=== PATIENT | male | born 1950 | race Caucasian/White ===

== ENCOUNTER 2018-08-19 21:49 | Emergency (ER) | payer OTHER ==
[~2018-08-19] VITALS: Ht 162.6 cm; Wt 82.0 kg
[~2018-08-19 21:49] MED LIST: GENT5DRO28 BOTH EYES; IBUP-1542 PO
[2018-08-19 21:55] VITALS: Ht 162.6 cm; Wt 82.0 kg
--- NOTE | 2018-08-19 22:19 | ERD ---
ER Documentation Chief Complaint Chief Complaint generalize body weakness x 1 day HPI The patient is a 67-year-old male, presenting to the ER because of generalized weakness/dizziness for the last 3 to 4 days, denies vertigo, syncope, near syncope, seizure, similar symptoms previously. He denies headache, neck pain, chest pain, dyspnea, abdominal pain, vomiting, dysuria, diarrhea. He does not smoke, drinks socially, not been taking his diabetes medication Past medical history: Hypertension, diabetes mellitus, CAD Past surgical history: CABG in 2017 ROS All systems reviewed and are negative except as per history of present illness. Medications Home Meds Discontinued Scripts Gentamicin Sulfate* (Gentamicin Sulfate* Ophth) 0.3% - 5 Ml Drops, 1 DROP BOTH EYES Q4 for 5 Days, EA Prov:LILA RIDDLE. PERSONAL SECURITY SPECIALIST 09/24/14 Ibuprofen* (Motrin*) 600 Mg Tab, 600 MG PO Q6H PRN for PAIN AND OR ELEVATED TEMP, #30 Prov:LILA RIDDLE. PERSONAL SECURITY SPECIALIST 09/24/14 Allergies Allergies: Coded Allergies: No Known Allergy (Unverified , 08/19/18) PMhx/Soc Hx Cardiac Disorders: Yes (HYPERTENSION) Hx Alcohol Use: Yes (SOCIALLY) Hx Substance Use: No Hx Tobacco Use: No Physical Exam Vitals Vital Signs Date Temp Pulse Resp B/P (MAP) Pulse Ox O2 O2 Flow FiO2 Time Delivery Rate 08/19/18 58 21 160/92 100 Nasal 2.0 23:49 (114) Cannula 08/19/18 97.9 62 18 190/100 96 21:55 (130) Physical Exam Const: No acute distress. Head: Atraumatic. Eyes: Normal Conjunctiva. ENT: Normal External Ears, Nose and Mouth. Neck: Full range of motion. No meningismus. Resp: Clear to auscultation bilaterally. Cardio: Regular rate and rhythm. Abd: Soft, non distended, normal bowel sounds, non tender. Skin: No petechiae or rashes. Back: No midline or flank tenderness. Ext: No cyanosis, or edema. Neur: Awake and alert. No focal deficit Psych: Normal Mood and Affect. Result Diagram: 08/19/18 2245 08/19/18 2245 Results 24 hrs Laboratory Tests Test 08/19/18 22:00 08/19/18 22:38 7/12/19 22:45 08/19/18 22:47 Bedside Glucose 437 mg/dL 432 mg/dL Blood Gas Blood venous Specimen Source Arterial Blood 08/19/2018 11:10 Date Drawn :32 PM Arterial Blood VENOUS LINE Gas Puncture Site Arnold Test N/A Venous Blood pH 7.376 Venous Blood 43.2 mmHG pCO2 (Temp Corrected ) Venous Blood 50.6 mmHG pO2 (Temp Corrected ) Venous Blood 24.8 mmol/L HCO3 Venous Blood 84.8 mmHG Oxygen Saturation Venous Blood -0.6 mmol/L Base Excess Venous Blood 15.9 g/dl Total Hemoglobin Venous Blood 84.2 % Oxyhemoglobin Venous Blood 0.2 % Methemoglobin Carboxyhemoglob 0.5 % in Blood Gas 37.0 C Temperature Blood Gas 21 Actual Respiration Rat e Blood Gas NASAL CANNULA Modality FiO2 27.0 % Blood Gas GENE Grady MD Critical Value Read Back Blood Gas KB Notified Whom Blood Gas 08/19/2018 11:15 Notified Time :34 PM White Blood 5.7 10^3/ul Count Red Blood Count 5.01 10^6/ul Hemoglobin 15.5 g/dl Hematocrit 44.5 % Mean 88.8 fl Corpuscular Volume Mean 30.9 pg Corpuscular Hemoglobin Mean 34.8 g/dl Corpuscular Hemoglobin Conc ent Red Cell 12.3 % Distribution Width Platelet Count 160 10^3/UL Mean Platelet 11.8 fl Volume Immature 0.400 % Granulocytes % Neutrophils % 50.2 % Lymphocytes % 31.0 % Monocytes % 12.6 % Eosinophils % 4.9 % Basophils % 0.9 % Nucleated Red 0.0 /100WBC Blood Cells % Immature 0.020 10^3/ul Granulocytes # Neutrophils # 2.9 10^3/ul Lymphocytes # 1.8 10^3/ul Monocytes # 0.7 10^3/ul Eosinophils # 0.3 10^3/ul Basophils # 0.1 10^3/ul Nucleated Red 0.0 10^3/ul Blood Cells # Sodium Level 133 mmol/L Potassium Level 3.7 mmol/L Chloride Level 99 mmol/L Carbon Dioxide 24 mmol/L Level Anion Gap 10 Blood Urea 19 mg/dl Nitrogen Creatinine 0.86 mg/dl Est Glomerular > 60 mL/min Filtrat Rate mL/min Glucose Level 418 mg/dl Calcium Level 8.8 mg/dl Phosphorus 3.8 mg/dl Level Magnesium Level 1.9 mg/dl Troponin I 0.030 ng/ml Test 08/19/18 22:57 08/20/18 00:41 08/20/18 01:06 Urine Color STRAW Urine Clarity CLEAR Urine pH 5.0 Urine Specific 1.027 [place] Urine Ketones NEGATIVE mg/dL Urine Nitrite NEGATIVE mg/dL Urine Bilirubin NEGATIVE mg/dL Urine NEGATIVE mg/dL Urobilinogen Urine Leukocyte NEGATIVE Davian/ul Esterase Urine 0 /HPF Microscopic RBC Urine 0 /HPF Microscopic WBC Urine NEGATIVE mg/dL Hemoglobin Urine Glucose 3+ mg/dL Urine Total 2+ mg/dl Protein Bedside Glucose 367 mg/dL 364 mg/dL Current Medications Medications Dose Sig/Sonja Start Time Status Last (Trade) Ordered Route PRN Stop Time Admin Dose Reason Admin Sodium 820 ml @ ONCE ONCE 08/19/18 DC 08/19/18 Chloride 820 mls/hr IV 23:00 22:49 08/19/18 23:59 Insulin 10 unit ONCE ONCE 08/20/18 DC 08/20/18 Human SC 00:00 00:45 Lispro 08/20/18 00:01 (Humalog) Diagnostic 1 ea 2 HRS AFTER 08/20/18 DC 08/20/18 Test (Pha) HUMALOG ONCE 00:30 00:45 (Accu-Chek) XX 08/20/18 00:31 Procedures/MDM MEDICAL MAKING DECISION: The patient is a 67-year-old male presenting with acute hypercalcemia, treated with normal saline 10 mm/kg, 10 units of Humalog subcu for acute hyperglycemia with good response, is stable for outpatient follow-up The differential diagnoses considered include but are not limited to HHS, DKA, electrolyte imbalance, dehydration, central causes such as cerebellar infarct, cerebellar hemorrhage, cerebellar tumor, acoustic neuroma, peripheral causes suc h as benign positional vertigo, labyrinthitis, medication, Meniere's disease. Departure Diagnosis: Primary Impression: Hyperglycemia due to type 2 diabetes mellitus Condition: Good Comments I discussed the findings with the patient. I advised the patient to follow-up with the primary physician in about 1-2 days, sooner if needed and return if any concern. Disclaimer: Inadvertent spelling and grammatical errors are likely due to EHR/dictation software use and do not reflect on the overall quality of patient care. Also, please note that the electronic time recorded on this note does not necessarily reflect the actual time of the patient encounter. RAHAT MILLS MD Aug 19, 2018 22:19
[2018-08-19] MEDS ORDERED: SOD CHLORIDE 0.9% 820 ML IV ONE (23:00)
[2018-08-20] MEDS ORDERED: INSULIN LISPRO 100 UNIT/ML VIAL SC ONE
[2018-08-20] MEDS ORDERED: ACCU-CHEK XX ONE (00:30)
[2018-08-20 01:54] VITALS: BP 163/98; PULSE 56; RESP 18
== END 2018-08-20 02:00 | disposition home or self-care (01) ==
LOC: E/R 21:49
DX: E11.65 Type 2 diabetes mellitus with hyperglycemia (principal); R42 Dizziness and giddiness; I10 Essential (primary) hypertension; I25.10 Atherosclerotic heart disease of native coronary artery without angina pectoris; Z95.1 Presence of aortocoronary bypass graft
CPT/HCPCS: 36415; 70450; 71045; 80048; 81001; 82803; 82962; 83735; 84100; 84484; 85025; 96372; 99285; J1815; J7030

== ENCOUNTER 2018-08-21 18:38 | Inpatient (IN) | payer OTHER ==
[~2018-08-21] VITALS: Ht 157.5 cm; Wt 79.5 kg
[2018-08-21] MEDS ORDERED: SOD CHLORIDE 0.9% 780 ML IV ONE (19:30)
[2018-08-21] MEDS ORDERED: INSULIN GLARGINE [LANTus] (100 UNITS/ML) SYG SC ONE (20:00)
[2018-08-21] MEDS ORDERED: ONDANSETRON 4 MG INJ IV PRN ×2 (20:00)
[2018-08-21] MEDS ORDERED: LISINOPRIL 20 MG TAB PO ONE (20:00)
[2018-08-21] MEDS ORDERED: NACL 0.9% 3 ML SYG IV SCH (20:00)
[2018-08-21] MEDS ORDERED: GLUCOSE GEL 15 GRAM TUBE PO PRN ×2 (20:00)
[2018-08-21] MEDS ORDERED: DOCUSATE SODIUM 100 MG CAP PO PRN (20:00)
[2018-08-21] MEDS ORDERED: ASPIRIN 325 MG TAB PO ONE (20:00)
[2018-08-21] MEDS ORDERED: DEXTROSE 50% 50 ML SYRINGE IV PRN ×2 (20:00)
[2018-08-21] MEDS ORDERED: ACETAMINOPHEN 325 MG TAB PO PRN ×2 (20:00)
[2018-08-21] MEDS ORDERED: BISACODYL (EC) 5 MG TAB PO PRN (20:00)
[2018-08-21] MEDS ORDERED: GLUCOSE GEL 15 GRAM TUBE BUCCAL PRN (20:00)
[2018-08-21] MEDS ORDERED: GLUCAGON 1 MG INJ IM PRN (20:00)
--- NOTE | 2018-08-21 20:38 | ERD ---
ER Documentation Chief Complaint Chief Complaint C/O HIGH BLOOD SUGAR; 304 IN TRIAGE HPI Patient is a 67-year-old male with coronary disease and diabetes who presents with feeling weak. The patient feels like his balance is off. He has left upper and left lower extremity weakness over the past 1 week. He is not taking medications for his diabetes currently. He called the primary doctor and is trying to make an appointment. The patient was seen on August 19 for hyperglycemia as well. The patient does not know what medicine he was on before for diabetes. He has sensation loss over the upper lower extremity as well. Upon review of old medical records this is the patient's third visit to the ER since 2014. The patient does not know the name of his primary doctor. ROS All systems reviewed and are negative except as per history of present illness. Medications Home Meds Discontinued Scripts Gentamicin Sulfate* (Gentamicin Sulfate* Ophth) 0.3% - 5 Ml Drops, 1 DROP BOTH EYES Q4 for 5 Days, EA Prov:LILA RIDDLE. FUNERAL SERVICE LICENSEE 09/24/14 Ibuprofen* (Motrin*) 600 Mg Tab, 600 MG PO Q6H PRN for PAIN AND OR ELEVATED TEMP, #30 Prov:LILA RIDDLE. FUNERAL SERVICE LICENSEE 09/24/14 Allergies Allergies: Coded Allergies: No Known Allergy (Unverified , 08/19/18) PMhx/Soc History of Surgery: Yes (cabg) Hx Cardiac Disorders: Yes (htn, dm) Hx Alcohol Use: No Hx Substance Use: No Hx Tobacco Use: No Smoking Status: Never smoker FmHx Family History: diabetes Physical Exam Vitals Vital Signs Date Temp Pulse Resp B/P (MAP) Pulse Ox O2 O2 Flow FiO2 Time Delivery Rate 08/21/18 Nasal 2 20:01 Cannula 08/21/18 60 16 167/94 96 Nasal 20:01 (118) Cannula 08/21/18 97.0 60 18 172/99 99 18:45 (123) Physical Exam Const: No acute distress Head: Atraumatic Eyes: Normal Conjunctiva ENT: Normal External Ears, Nose and Mouth. Neck: Full range of motion. No meningismus. Resp: Clear to auscultation bilaterally Cardio: Regular rate and rhythm, no murmurs Abd: Soft, non tender, non distended. Normal bowel sounds Skin: No petechiae or rashes Back: No midline or flank tenderness Ext: No cyanosis, or edema Neur: Awake and alert, cranial nerves II through XII are intact, left upper and left lower extremity weakness with difficulty raising against gravity, sensation decreased in the left upper and lower extremity Psych: Normal Mood and Affect Result Diagram: 08/21/18189908/21/181899 Results 24 hrs Laboratory Tests Test 08/21/18 18:43 08/21/18 19:00 08/21/18 19:05 08/21/18 19:30 Bedside Glucose 304 mg/dL 267 mg/dL White Blood Count 6.0 10^3/ul Red Blood Count 4.95 10^6/ul Hemoglobin 15.4 g/dl Hematocrit 44.7 % Mean Corpuscular 90.3 fl Volume Mean Corpuscular 31.1 pg Hemoglobin Mean Corpuscular 34.5 g/dl Hemoglobin Concen t Red Cell 12.6 % Distribution Width Platelet Count 159 10^3/UL Mean Platelet 11.7 fl Volume Immature 0.200 % Granulocytes % Neutrophils % 52.0 % Lymphocytes % 29.8 % Monocytes % 12.0 % Eosinophils % 5.0 % Basophils % 1.0 % Nucleated Red 0.0 /100WBC Blood Cells % Immature 0.010 10^3/ul Granulocytes # Neutrophils # 3.1 10^3/ul Lymphocytes # 1.8 10^3/ul Monocytes # 0.7 10^3/ul Eosinophils # 0.3 10^3/ul Basophils # 0.1 10^3/ul Nucleated Red 0.0 10^3/ul Blood Cells # Sodium Level 135 mmol/L Potassium Level 4.1 mmol/L Chloride Level 103 mmol/L Carbon Dioxide 24 mmol/L Level Anion Gap 8 Blood Urea 21 mg/dl Nitrogen Creatinine 1.03 mg/dl Est Glomerular > 60 mL/min Filtrat Rate mL/min Glucose Level 286 mg/dl Hemoglobin A1c 12.3 % Calcium Level 8.8 mg/dl Phosphorus Level 4.5 mg/dl Magnesium Level 1.8 mg/dl Urine Color YELLOW Urine Clarity CLEAR Urine pH 6.0 Urine Specific 1.021 [place] Urine Ketones NEGATIVE mg/dL Urine Nitrite NEGATIVE mg/dL Urine Bilirubin NEGATIVE mg/dL Urine NEGATIVE mg/dL Urobilinogen Urine Leukocyte NEGATIVE Davian/ul Esterase Urine Microscopic 0 /HPF RBC Urine Microscopic 1 /HPF WBC Urine Hemoglobin NEGATIVE mg/dL Urine Glucose 3+ mg/dL Urine Total 2+ mg/dl Protein Urine Opiates Negative Screen Urine Negative Barbiturates Urine Negative Amphetamines Screen Urine Negative Benzodiazepines Screen Urine Cocaine Negative Screen Urine Negative Cannabinoids Current Medications Medications Dose Sig/Sonja Start Time Status Last (Trade) Ordered Route PRN Stop Time Admin Dose Reason Admin Sodium 780 ml @ ONCE ONCE 08/21/18 DC 08/21/18 Chloride 780 mls/hr IV 19:30 19:14 08/21/18 20:29 Aspirin 325 mg ONCE ONCE 08/21/18 DC 08/21/18 (Aspirin) PO 20:00 19:58 08/21/18 20:01 Ondansetron 4 mg ER BRIDGE 08/21/18 DC HCl (Zofran PRN IV 20:00 Inj) NAUSEA/VOMITI 08/21/18 20:00 NG 650 mg ER BRIDGE 08/21/18 DC Acetaminophen PRN PO 20:00 (Tylenol .MILD PAIN 08/21/18 20:00 Tab) 1-3 OR TEMP IV Flush 3 ml PER 08/21/18 (NS 3 ml) PROTOCOL IV 20:00 Ondansetron 4 mg Q6H PRN 08/21/18 HCl (Zofran IV 20:00 Inj) NAUSEA/VOMITI NG 650 mg Q6H PRN 08/21/18 Acetaminophen PO .PAIN 1-3 20:00 (Tylenol OR TEMP Tab) Docusate 100 mg Q12H PRN 08/21/18 Sodium PO 20:00 (Colace) .CONSTIPATION Bisacodyl 5 mg DAILY PRN 08/21/18 (Dulcolax) PO 20:00 .CONSTIPATION Discontinue ONCE ONCE 08/21/18 DC Miscellaneous current oral XX 20:00 sulfonylur... 08/21/18 20:01 Information (* Miscellaneous Pharmacy Order) Diagnostic 1 ea 02 XX 08/22/18 Test (Pha) 02:00 (Accu-Chek) ONCE ONCE 08/21/18 DC Miscellaneous HYPOGLYCEMIA XX 20:00 PROTOCOL 08/21/18 20:01 Information w... (* Miscellaneous Pharmacy Order) Insulin NOVOLOG WITH MEALS 08/21/18 Aspart *MILD* BEDTIME SC 21:00 (Novolog ALGORITHM Insulin Pen) Discontinue ONCE ONCE 08/21/18 DC Miscellaneous all previ... XX 20:00 08/21/18 20:01 Information (* Miscellaneous Pharmacy Order) Insulin 10 units ONCE ONCE 08/21/18 DC Glargine SC 20:00 (Lantus) 08/21/18 20:01 Lisinopril 20 mg ONCE ONCE 08/21/18 DC (Zestril) PO 20:00 08/21/18 20:01 1 ea NOTE XX 08/21/18 Miscellaneous 20:00 Information Glucose 15 gm Q15M PRN 08/21/18 (Glutose) PO DECREASED 20:00 GLUCOSE Glucose 22.5 gm Q15M PRN 08/21/18 (Glutose) PO DECREASED 20:00 GLUCOSE Dextrose 25 ml Q15M PRN 08/21/18 (D50w IV DECREASED 20:00 Syringe) GLUCOSE Dextrose 50 ml Q15M PRN 08/21/18 (D50w IV DECREASED 20:00 Syringe) GLUCOSE Glucagon 1 mg Q15M PRN 08/21/18 (Glucagen) IM DECREASED 20:00 GLUCOSE Glucose 15 gm Q15M PRN 08/21/18 (Glutose) BUCCAL 20:00 DECREASED GLUCOSE Procedures/MDM CT brain read by radiology. Chest x-ray read by radiology. EKG read by me: Rate/Rhythm: Regular rate and rhythm Intervals: Normal Impression: No evidence of ischemia or arrhythmia Patient is a 67-year-old male presents with acute stroke. The patient is outside the window for IV TPA or mechanical retrieval as symptoms started 1 week ago. He has left upper and lower semi-weakness with sensation loss. The patient had a CT scan of the brain and then was given aspirin. He had an NIH stroke scale performed by nursing and a bedside swallow. The patient will be admitted to the care of Dr. Thao to a telemetry inpatient bed. He has hyperglycemia but no diabetic ketoacidosis. Critical Care: Time: 35 minutes excluding all billable procedures. Treatments/Evaluations: Close monitoring and treatment of unstable vital signs, cardiorespiratory, and neurologic status, while maintaining tight balance of fluid, respiratory, and cardiac interventions. Departure Diagnosis: Primary Impression: Stroke CVA mechanism: unspecified Qualified Codes: I63.9 - Cerebral infarction, unspecified Additional Impression: Hyperglycemia Condition: GURMEET Grace MD Aug 21, 2018 20:38
--- NOTE | 2018-08-21 20:40 | HP ---
Date/Time of Note Date/Time of Note DATE: 08/21/18 TIME: 20:39 Assessment/Plan VTE Prophylaxis SCD applied (from Nsg): Yes Pharmacological prophylaxis: NA/contraindicated Pharm contraindication: low risk/ambulating Lines/Catheters IV Catheter Type (from Nrsg): Saline Lock Assessment/Plan Hospital Course This is a 67-year-old male being admitted to the telemetry floor for observation for: #1 High suspicion for CVA: Patient does have decreased sensation as well as decreased strength of the left upper and lower extremity. He also has an unsteady gait. There appears to be a left-sided facial droop. CT brain does show signs of old infarct. Will obtain an MRI of the brain and MRA of the head and neck. Will check an echocardiogram with bubble study. Will check carotid Dopplers. Hemoglobin A1c is 12.5 we will need to optimize diabetes medication and regimen. Patient's blood pressure was also elevated in the systolic of 170 we will need to optimize this. We will check lipid panel. Start the patient on a high-dose statin. Will consult neurology . PT/OT/speech eval #2 uncontrolled hypertension: We will initiate lisinopril 20 mg p.o. daily, PRN hydralazine. Titrate to goal of less than 130/80 given hx of DM. #3 uncontrolled diabetes mellitus: Patient's hemoglobin A1c is 12.3. I will initiate Lantus moderate weight-based dose, NovoLog with meals. Insulin sliding scale. Diabetic diet. MICHAELA initiated. #4 hyperlipidemia: Initiate statin, check LFTs, lipid panel #5 coronary artery disease: Patient is status post CABG. Echocardiogram is already been ordered. Initiate any further meds and consider cardiology consultation if indicated. #6 DVT GI prophylaxis: SCDs, no GI prophylaxis indicated Further treatment strategy will be implemented as per the clinical course Result Diagram: 08/21/18189908/21/181899 Results 24hrs Laboratory Tests Test 08/21/18 18:43 08/21/18 19:00 08/21/18 19:05 08/21/18 19:30 Bedside Glucose 304 H 267 H White Blood Count 6.0 Red Blood Count 4.95 Hemoglobin 15.4 Hematocrit 44.7 Mean Corpuscular 90.3 Volume Mean Corpuscular 31.1 Hemoglobin Mean Corpuscular 34.5 Hemoglobin Concent Red Cell 12.6 Distribution Width Platelet Count 159 Mean Platelet Volume 11.7 H Immature 0.200 Granulocytes % Neutrophils % 52.0 Lymphocytes % 29.8 Monocytes % 12.0 H Eosinophils % 5.0 Basophils % 1.0 Nucleated Red Blood 0.0 Cells % Immature 0.010 Granulocytes # Neutrophils # 3.1 Lymphocytes # 1.8 Monocytes # 0.7 Eosinophils # 0.3 Basophils # 0.1 Nucleated Red Blood 0.0 Cells # Sodium Level 135 Potassium Level 4.1 Chloride Level 103 Carbon Dioxide Level 24 Anion Gap 8 Blood Urea Nitrogen 21 H Creatinine 1.03 Est Glomerular > 60 Filtrat Rate mL/min Glucose Level 286 #H Hemoglobin A1c 12.3 H Calcium Level 8.8 Phosphorus Level 4.5 Magnesium Level 1.8 Urine Color YELLOW Urine Clarity CLEAR Urine pH 6.0 Urine Specific 1.021 [place] Urine Ketones NEGATIVE Urine Nitrite NEGATIVE Urine Bilirubin NEGATIVE Urine Urobilinogen NEGATIVE Urine Leukocyte NEGATIVE Esterase Urine Microscopic 0 RBC Urine Microscopic 1 WBC Urine Hemoglobin NEGATIVE Urine Glucose 3+ H Urine Total Protein 2+ H Urine Opiates Screen Negative Urine Barbiturates Negative Urine Amphetamines Negative Screen Urine Negative Benzodiazepines Screen Urine Cocaine Screen Negative Urine Cannabinoids Negative HPI/ROS Admit Date/Time Admit Date/Time Hx of Present Illness Chief complaint: Left-sided weakness and unsteady gait This is a 67-year-old male with a past medical history of coronary artery disease, diabetes and hypertension who presented to the emergency department complaining of weakness. His is present with him at the bedside. She states that approximate 1 week ago patient was reporting left upper and lower extremity numbness and weakness. He was seen in the emergency department and treated for elevated blood sugars on August 19. reports that on that day she noticed that he was having unsteady gait. He has not been taking his blood pressure medications or diabetes medications for approximately 6 months as he apparently did not need to take them any longer. reports that he is still eating. Patient denies any chest pain nausea vomiting or diarrhea. Of note patient is noted to have a hemoglobin A1c of 12.5. Allergies: NKDA Medications: None ROS Const: As per HPI Eyes : No pain discharge or redness or change in visual acuity ENT: No pain, sore throat, congestion, congestion, dysphagia or discharge Respiratory: No shortness of breath, cough, sputum, wheezing, or pleuritic pain Cardiovascular: No chest pain, palpitation, PND, or edema GI : no change in appetite, abdominal pain, nausea, vomiting, diarrhea, constipation, or change in the color his stool Genitourinary: No dysuria, hematuria, flank pain , discharge or CVA tenderness Musculoskeletal: As per HPI Skin: No rash, bruising or hives Neuro: As per HPI Endocrine: No polyuria, polydipsia, temperature intolerance Psych: No hallucination, depression, anxiety or suicidal ideation PMH/Family/Social Past Medical History Diabetes mellitus, hypertension, hyperlipidemia, coronary artery disease Medications Current Medications IV Flush (NS 3 ml) 3 ml PER PROTOCOL IV ; Start 08/21/18 at 20:00 Ondansetron HCl (Zofran Inj) 4 mg Q6H PRN IV NAUSEA/VOMITING; Start 08/21/18 at 20:00 Acetaminophen (Tylenol Tab) 650 mg Q6H PRN PO .PAIN 1-3 OR TEMP; Start 08/21/18 at 20:00 Docusate Sodium (Colace) 100 mg Q12H PRN PO .CONSTIPATION; Start 08/21/18 at 20:00 Bisacodyl (Dulcolax) 5 mg DAILY PRN PO .CONSTIPATION; Start 08/21/18 at 20:00 Diagnostic Test (Pha) (Accu-Chek) 1 ea 02 XX ; Start 08/22/18 at 02:00 Insulin Aspart (Novolog Insulin Pen) NOVOLOG *MILD* ALGORITHM WITH MEALS BEDTIME SC ; Start 08/21/18 at 21:00 Miscellaneous Information 1 ea NOTE XX ; Start 08/21/18 at 20:00 Glucose (Glutose) 15 gm Q15M PRN PO DECREASED GLUCOSE; Start 08/21/18 at 20:00 Glucose (Glutose) 22.5 gm Q15M PRN PO DECREASED GLUCOSE; Start 08/21/18 at 20:00 Dextrose (D50w Syringe) 25 ml Q15M PRN IV DECREASED GLUCOSE; Start 08/21/18 at 20:00 Dextrose (D50w Syringe) 50 ml Q15M PRN IV DECREASED GLUCOSE; Start 08/21/18 at 20:00 Glucagon (Glucagen) 1 mg Q15M PRN IM DECREASED GLUCOSE; Start 08/21/18 at 20:00 Glucose (Glutose) 15 gm Q15M PRN BUCCAL DECREASED GLUCOSE; Start 08/21/18 at 20:00 Coded Allergies: No Known Allergy (Unverified , 08/19/18) Past Surgical History CABG Family History Significant Family History: no pertinent family hx Social History Alcohol Use: sober Smoking Status: Never smoker Drug Use: none (Former heavy drinker) Exam/Review of Systems Vital Signs Vitals Vital Signs Date Temp Pulse Resp B/P (MAP) Pulse Ox O2 O2 Flow FiO2 Time Delivery Rate 08/21/18 Nasal 2 20:01 Cannula 08/21/18 60 16 167/94 96 20:01 (118) 08/21/18 97.0 18:45 Exam Exam General: Patient is currently lying in bed he does not appear to be in any acute distress, he does appear to be facial asymmetry with a possible left-sided facial droop HEENT: Facial asymmetry with possible left-sided facial droop Neck: Supple with full range of motion. No rigidity or meningismus Chest: Nontender Lungs: Clear to auscultation bilaterally no crackles rales or wheezing Heart: Normal S1-S2, Regular rhythm and rate. No murmur, S3, or S4 Abdomen: Soft , nontender, nondistended , bowel sounds are present. No guarding no rebound tenderness , No masses or organomegaly. No costovertebral temporal angle mass Extremities: Normal to inspection, no edema no cyanosis Neurologic: Normal mental status, speech normal, possible left-sided facial droop, decreased network infrastructure architect strength of the left hand, strength 4-5 in the left upper and lower extremity, strength 5 out of 5 in the right upper lower extremity. Gait not assessed this patient states he is tired however does report that it seems like he is walking as if he is drunk. Additional Comments PROCEDURE: CT Brain without contrast. CLINICAL INDICATION: Possible stroke, dizziness TECHNIQUE: A CT of the brain was performed utilizing axial imaging from the skull base through the vertex without intravenous contrast. Multiplanar reformatted images were made.The CTDIvol is 39.52 mGy and the DLP is 713.51 mGycm. One or more the following dose reduction techniques were utilized: Automated exposure control, adjustment of the mA and / or kV according to patient's size, or use of iterative reconstruction technique. DICOM images are available. COMPARISON: CT BRAIN 08/19/2018 FINDINGS: There is no intracranial hemorrhage, mass effect, or midline shift. No extra- axial fluid collection is seen. Mild atrophy is identified with compensatory ventricular and sulcal enlargement. Mild to moderate decreased attenuation is seen in the periventricular and deep white matter, compatible with microvascular ischemic disease. Small chronic infarct in posterior left upper frontal region. The osseous structures and visualized paranasal sinuses are unremarkable. Moderate arterial calcification. IMPRESSION: 1. No evidence of acute intracranial pathology. No significant change compared to previous study. 2. Mild diffuse atrophy. 3. There is mild to moderate microvascular ischemic disease in the periventricu lar and deep white matter. 4. Small chronic infarct in the posterior upper left frontal region. RPTAT: HJES .Kirill Otero MD, MD Date Time Electronically viewed and signed by .Kirill Otero MD, MD on 08/21/2018 19:48 .S/ CC: GURMEET MURILLO MD [id number] PROCEDURE: One view chest radiograph. CLINICAL INDICATION: Possible stroke TECHNIQUE: An AP view of the chest was obtained. COMPARISON: None. FINDINGS: Mediastinum: Median sternotomy wires Heart size: Mildly enlarged Pulmonary vasculature: No visible engorgement. Lungs: Clear. Costophrenic sulci: Clear. Bony structures: Grossly unremarkable for age. IMPRESSION: 1. Mild cardiomegaly and previous median sternotomy without evidence of overt congestive failure or pneumonia. RPTAT:AAJJ Physician Selene Date Time Electronically viewed and signed by Physician Selene on 08/21/2018 19:58 GW/ CC: GURMEET MURILLO MD [id number] RUPA SQUIRES Aug 21, 2018 20:40
[2018-08-21 21:30] VITALS: Ht 157.5 cm; Wt 79.5 kg
[2018-08-21] MEDS: INSULIN ASPART [NOVOLOG] 3 ML PEN SC SCH (22:00)
[2018-08-21 22:04] VITALS: BP 169/94; PULSE 59; RESP 19
[2018-08-22] VITALS (8 sets, daily range): BP systolic 158–188; BP diastolic 87–96; PULSE 54–64; RESP 17–19
[2018-08-22] MEDS ORDERED: hydrALAzine 20 MG INJ IV PRN (02:00)
[2018-08-22] MEDS: ACCU-CHEK XX SCH (02:24)
[2018-08-22] MEDS ORDERED: INSULIN GLARGINE [LANTus] (100 UNITS/ML) SYG SC ONE (06:00)
[2018-08-22] MEDS: LISINOPRIL 20 MG TAB PO SCH (08:21)
[2018-08-22] MEDS: INSULIN ASPART [NOVOLOG] 3 ML PEN SC SCH ×7 (08:30→21:09)
[2018-08-22] MEDS ORDERED: AMLODIPINE 2.5 MG TAB PO SCH (09:00)
--- NOTE | 2018-08-22 11:13 | CONSI ---
Assessment/Plan Assessment/Plan Assessment/Plan (Recall) 67M c/ multiple cerebrovascular risk factors, who presents for evaluation of Left sided weakness x 1 week.. The clinical picture is most ominously concerning for acute stroke.. Head CT is notable for a chronic-appearing L frontal infarct. A1C > 12% LDL 72, CUS is neg, UDS neg P: MRI brain for further characterization Agree w/ lipitor daily for now Add asa daily Add ESR, RPR PT/OT as necessary BP control and other medical management per primary Will follow clinically Consultation Date/Type/Reason Admit Date/Time Type of Consult Neurology Reason for Consultation left sided weakness Requesting Provider: RUPA SQUIRES Date/Time of Note DATE: 08/22/18 TIME: 11:07 Hx of Present Illness This is a 67-year-old male with a past medical history of coronary artery disease, diabetes and hypertension who presented to the emergency department complaining of weakness. His is present with him at the bedside. She states that approximate 1 week ago patient was reporting left upper and lower extremity numbness and weakness. He was seen in the emergency department and treated for elevated blood sugars on August 19. reports that on that day she noticed that he was having unsteady gait. He has not been taking his blood pres sure medications or diabetes medications for approximately 6 months as he apparently did not need to take them any longer. reports that he is still eating. Patient denies any chest pain nausea vomiting or diarrhea. Of note patient is noted to have a hemoglobin A1c of 12.5. per HPI Objective Exam Vitals Vital Signs Date Temp Pulse Resp B/P (MAP) Pulse Ox O2 O2 Flow FiO2 Time Delivery Rate 08/22/18 98.5 64 19 161/90 91 07:29 (113) 08/21/18 Room Air 20:59 08/21/18 2 20:01 Intake and Output 08/21/18 08/21/18 08/22/18 1515:00 23:00 07:00 IntakeIntake Total 50 ml OutputOutput Total 200 ml 600 ml BalanceBalance -200 ml -550 ml Exam PE: Gen Appearance: No Apparent Distress HEENT: Normocephalic Cardiovascular: Regular rate Lungs: Clear bilaterally Abdomen: Soft Extremities: Dry NE: The patient was alert and oriented. Language was normal. Fund of knowledge was normal. Pupils were equal and reactive to light. There was no afferent pupillary defect. Visual howe were normal. Funduscopic examination was limited. Extra-ocular movements were full. Ptosis was absent. There was no nystagmus. Facial sensation was normal. Face was symmetric with normal strength. Hearing was intact. Palate movements were normal. Neck strength was normal. There was normal tongue bulk and speed of movement. Tone was normal. Muscle bulk was normal. I did not see fasciculations. Left arm and leg were mildly weak.. Vibration sensation was normal. Temperature and pinprick sensation was normal. Rapid alternating movements were normal. There was no dysmetria. There was no intention tremor. Gait was deferred due to bedrest. Arm and leg reflexes were symmetric. Fleming's sign was absent. Plantar responses were flexor. Results Result Diagram: 08/22/18 0604 08/22/18 0604 Results 24hrs Laboratory Tests Test 08/21/18 18:43 08/21/18 19:00 08/21/18 19:04 08/21/18 19:05 Bedside Glucose 304 H 267 H White Blood Count 6.0 Red Blood Count 4.95 Hemoglobin 15.4 Hematocrit 44.7 Mean Corpuscular 90.3 Volume Mean Corpuscular 31.1 Hemoglobin Mean Corpuscular 34.5 Hemoglobin Concen t Red Cell 12.6 Distribution Width Platelet Count 159 Mean Platelet 11.7 H Volume Immature 0.200 Granulocytes % Neutrophils % 52.0 Lymphocytes % 29.8 Monocytes % 12.0 H Eosinophils % 5.0 Basophils % 1.0 Nucleated Red 0.0 Blood Cells % Immature 0.010 Granulocytes # Neutrophils # 3.1 Lymphocytes # 1.8 Monocytes # 0.7 Eosinophils # 0.3 Basophils # 0.1 Nucleated Red 0.0 Blood Cells # Sodium Level 135 Potassium Level 4.1 Chloride Level 103 Carbon Dioxide 24 Level Anion Gap 8 Blood Urea 21 H Nitrogen Creatinine 1.03 Est Glomerular > 60 Filtrat Rate mL/min Glucose Level 286 #H Hemoglobin A1c 12.3 H Calcium Level 8.8 Phosphorus Level 4.5 Magnesium Level 1.8 Blood Gas Blood venous Specimen Source Arterial Blood 08/21/2018 8:42:5 Date Drawn 1 PM Arterial Blood VENOUS LINE Gas Puncture Site Arnold Test N/A Venous Blood pH 7.384 Venous Blood pCO2 40.5 (Temp Corrected) Venous Blood pO2 63.4 H (Temp Corrected) Venous Blood HCO3 23.6 Venous Blood 91.7 H Oxygen Saturation Venous Blood Base -1.3 Excess Venous Blood 16.1 Total Hemoglobin Venous Blood 91.1 Oxyhemoglobin Venous Blood 0.2 Methemoglobin Carboxyhemoglobin 0.5 Blood Gas 37.0 Temperature Blood Gas NASAL CANNULA Modality FiO2 30.0 Blood Gas AA Notified Whom Blood Gas 08/21/2018 8:49:4 Notified Time 4 PM Test 08/21/18 19:30 08/21/18 20:34 08/21/18 21:51 08/22/18 02:07 Urine Color YELLOW Urine Clarity CLEAR Urine pH 6.0 Urine Specific 1.021 [place] Urine Ketones NEGATIVE Urine Nitrite NEGATIVE Urine Bilirubin NEGATIVE Urine NEGATIVE Urobilinogen Urine Leukocyte NEGATIVE Esterase Urine Microscopic 0 RBC Urine Microscopic 1 WBC Urine Hemoglobin NEGATIVE Urine Glucose 3+ H Urine Total 2+ H Protein Urine Opiates Negative Screen Urine Negative Barbiturates Urine Negative Amphetamines Screen Urine Negative Benzodiazepines Screen Urine Cocaine Negative Screen Urine Negative Cannabinoids Bedside Glucose 233 H 213 246 H Test 08/22/18 06:04 08/22/18 08:15 White Blood Count 7.1 Red Blood Count 4.86 Hemoglobin 15.0 Hematocrit 44.1 Mean Corpuscular 90.7 Volume Mean Corpuscular 30.9 Hemoglobin Mean Corpuscular 34.0 Hemoglobin Concen t Red Cell 12.7 Distribution Width Platelet Count 162 Mean Platelet 12.1 H Volume Immature 0.300 Granulocytes % Neutrophils % 60.9 Lymphocytes % 23.5 Monocytes % 10.3 Eosinophils % 4.4 Basophils % 0.6 Nucleated Red 0.0 Blood Cells % Immature 0.020 Granulocytes # Neutrophils # 4.3 Lymphocytes # 1.7 Monocytes # 0.7 Eosinophils # 0.3 Basophils # 0.0 Nucleated Red 0.0 Blood Cells # Sodium Level 139 Potassium Level 3.6 Chloride Level 106 Carbon Dioxide 26 Level Anion Gap 7 Blood Urea 23 H Nitrogen Creatinine 0.96 Est Glomerular > 60 Filtrat Rate mL/min Glucose Level 272 H Calcium Level 8.9 Total Bilirubin 0.7 Direct Bilirubin 0.00 Indirect 0.7 Bilirubin Aspartate Amino 25 Transf (AST/SGOT) Alanine 47 Aminotransferase (ALT/SGPT) Alkaline 111 Phosphatase Total Protein 6.3 Albumin 3.1 L Globulin 3.20 Albumin/Globulin 0.96 Ratio Triglycerides 200 H Level Cholesterol Level 136 LDL Cholesterol, 72 Calculated HDL Cholesterol 24 L Cholesterol/HDL 5.6 Ratio Thyroid 5.580 H Stimulating Hormone (TSH) Bedside Glucose 232 H Past Medical History reviewed Home Meds Discontinued Scripts Gentamicin Sulfate* (Gentamicin Sulfate* Ophth) 0.3% - 5 Ml Drops, 1 DROP BOTH EYES Q4 for 5 Days, EA Prov:LILA RIDDLE. [employer] 09/24/14 Ibuprofen* (Motrin*) 600 Mg Tab, 600 MG PO Q6H PRN for PAIN AND OR ELEVATED TEMP, #30 Prov:LILA RIDDLE. [employer] 09/24/14 Medications Current Medications IV Flush (NS 3 ml) 3 ml PER PROTOCOL IV ; Start 08/21/18 at 20:00 Ondansetron HCl (Zofran Inj) 4 mg Q6H PRN IV NAUSEA/VOMITING; Start 08/21/18 at 20:00 Acetaminophen (Tylenol Tab) 650 mg Q6H PRN PO .PAIN 1-3 OR TEMP; Start 08/21/18 at 20:00 Docusate Sodium (Colace) 100 mg Q12H PRN PO .CONSTIPATION; Start 08/21/18 at 20:00 Bisacodyl (Dulcolax) 5 mg DAILY PRN PO .CONSTIPATION; Start 08/21/18 at 20:00 Diagnostic Test (Pha) (Accu-Chek) 1 ea 02 XX Last administered on 08/22/18at 02:24; Admin Dose 1 EA; Start 08/22/18 at 02:00 Insulin Aspart (Novolog Insulin Pen) NOVOLOG *MILD* ALGORITHM WITH MEALS BEDTIME SC Last administered on 08/22/18at 08:30; Admin Dose 4 UNIT; Start 08/21/18 at 21:00 Miscellaneous Information 1 ea NOTE XX ; Start 08/21/18 at 20:00 Glucose (Glutose) 15 gm Q15M PRN PO DECREASED GLUCOSE; Start 08/21/18 at 20:00 Glucose (Glutose) 22.5 gm Q15M PRN PO DECREASED GLUCOSE; Start 08/21/18 at 20:00 Dextrose (D50w Syringe) 25 ml Q15M PRN IV DECREASED GLUCOSE; Start 08/21/18 at 20:00 Dextrose (D50w Syringe) 50 ml Q15M PRN IV DECREASED GLUCOSE; Start 08/21/18 at 20:00 Glucagon (Glucagen) 1 mg Q15M PRN IM DECREASED GLUCOSE; Start 08/21/18 at 20:00 Glucose (Glutose) 15 gm Q15M PRN BUCCAL DECREASED GLUCOSE; Start 08/21/18 at 20:00 Hydralazine HCl (Apresoline) 10 mg Q4H PRN IV ELEVATED BLOOD PRESSURE; Start 08/22/18 at 02:00 Insulin Glargine (Lantus) 20 units DAILY@0800 SC ; Start 08/23/18 at 08:00 Insulin Aspart (Novolog Insulin Pen) 4 unit WITH MEALS SC Last administered on 08/22/18at 08:30; Admin Dose 4 UNIT; Start 08/22/18 at 07:55 Atorvastatin Calcium (Lipitor) 80 mg HS PO ; Start 08/22/18 at 21:00 Lisinopril (Zestril) 20 mg DAILY PO Last administered on 08/22/18at 08:21; Admin Dose 20 MG; Start 08/22/18 at 09:00 Amlodipine Besylate (Norvasc) 2.5 mg DAILY PO Last administered on 08/22/18at 08:21; Admin Dose 2.5 MG; Start 08/22/18 at 09:00 Allergies: Coded Allergies: No Known Allergy (Unverified , 08/19/18) Social History Alcohol Use: sober Smoking Status: Never smoker Drug Use: none (Former heavy drinker) MATTHEW DOZIER Aug 22, 2018 11:12
[2018-08-22] MEDS: ASPIRIN (EC) 81 MG TAB PO SCH (12:01)
--- NOTE | 2018-08-22 15:27 | PN ---
Date/Time of Note Date/Time of Note DATE: 08/22/18 TIME: 15:15 Assessment/Plan VTE Prophylaxis Risk score (from Nsg)>0 risk: 5 SCD applied (from Ns): Yes Pharmacological prophylaxis: LMWH Lines/Catheters IV Catheter Type (from Nrsg): Peripheral IV Assessment/Plan Assessment/Plan 1. Left sided weakness for one week, follow up with MRI, PT/OT 2. 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 DM, increased lantus, ISS 4. HTN, increase norvasc, on lisinopril 5. Dyslipidemia, on lipitor 6. CAD, s/p CABG in 2017, stable 7. TSH 5.58, check FT4 8. DVT prophylaxis: lovenox Result Diagram: 08/22/18 0604 08/22/18 0604 Results 24hrs Laboratory Tests Test 08/21/18 18:43 08/21/18 19:00 08/21/18 19:04 08/21/18 19:05 Bedside Glucose 304 H 267 H White Blood Count 6.0 Red Blood Count 4.95 Hemoglobin 15.4 Hematocrit 44.7 Mean Corpuscular 90.3 Volume Mean Corpuscular 31.1 Hemoglobin Mean Corpuscular 34.5 Hemoglobin Concen t Red Cell 12.6 Distribution Width Platelet Count 159 Mean Platelet 11.7 H Volume Immature 0.200 Granulocytes % Neutrophils % 52.0 Lymphocytes % 29.8 Monocytes % 12.0 H Eosinophils % 5.0 Basophils % 1.0 Nucleated Red 0.0 Blood Cells % Immature 0.010 Granulocytes # Neutrophils # 3.1 Lymphocytes # 1.8 Monocytes # 0.7 Eosinophils # 0.3 Basophils # 0.1 Nucleated Red 0.0 Blood Cells # Sodium Level 135 Potassium Level 4.1 Chloride Level 103 Carbon Dioxide 24 Level Anion Gap 8 Blood Urea 21 H Nitrogen Creatinine 1.03 Est Glomerular > 60 Filtrat Rate mL/min Glucose Level 286 #H Hemoglobin A1c 12.3 H Calcium Level 8.8 Phosphorus Level 4.5 Magnesium Level 1.8 Blood Gas Blood venous Specimen Source Arterial Blood 08/21/2018 8:42:5 Date Drawn 1 PM Arterial Blood VENOUS LINE Gas Puncture Site Arnold Test N/A Venous Blood pH 7.384 Venous Blood pCO2 40.5 (Temp Corrected) Venous Blood pO2 63.4 H (Temp Corrected) Venous Blood HCO3 23.6 Venous Blood 91.7 H Oxygen Saturation Venous Blood Base -1.3 Excess Venous Blood 16.1 Total Hemoglobin Venous Blood 91.1 Oxyhemoglobin Venous Blood 0.2 Methemoglobin Carboxyhemoglobin 0.5 Blood Gas 37.0 Temperature Blood Gas NASAL CANNULA Modality FiO2 30.0 Blood Gas AA Notified Whom Blood Gas 08/21/2018 8:49:4 Notified Time 4 PM Test 08/21/18 19:30 08/21/18 20:34 08/21/18 21:51 08/22/18 02:07 Urine Color YELLOW Urine Clarity CLEAR Urine pH 6.0 Urine Specific 1.021 [place] Urine Ketones NEGATIVE Urine Nitrite NEGATIVE Urine Bilirubin NEGATIVE Urine NEGATIVE Urobilinogen Urine Leukocyte NEGATIVE Esterase Urine Microscopic 0 RBC Urine Microscopic 1 WBC Urine Hemoglobin NEGATIVE Urine Glucose 3+ H Urine Total 2+ H Protein Urine Opiates Negative Screen Urine Negative Barbiturates Urine Negative Amphetamines Screen Urine Negative Benzodiazepines Screen Urine Cocaine Negative Screen Urine Negative Cannabinoids Bedside Glucose 233 H 213 246 H Test 08/22/18 06:04 08/22/18 08:15 08/22/18 11:27 08/22/18 12:03 White Blood Count 7.1 Red Blood Count 4.86 Hemoglobin 15.0 Hematocrit 44.1 Mean Corpuscular 90.7 Volume Mean Corpuscular 30.9 Hemoglobin Mean Corpuscular 34.0 Hemoglobin Concen t Red Cell 12.7 Distribution Width Platelet Count 162 Mean Platelet 12.1 H Volume Immature 0.300 Granulocytes % Neutrophils % 60.9 Lymphocytes % 23.5 Monocytes % 10.3 Eosinophils % 4.4 Basophils % 0.6 Nucleated Red 0.0 Blood Cells % Immature 0.020 Granulocytes # Neutrophils # 4.3 Lymphocytes # 1.7 Monocytes # 0.7 Eosinophils # 0.3 Basophils # 0.0 Nucleated Red 0.0 Blood Cells # Sodium Level 139 Potassium Level 3.6 Chloride Level 106 Carbon Dioxide 26 Level Anion Gap 7 Blood Urea 23 H Nitrogen Creatinine 0.96 Est Glomerular > 60 Filtrat Rate mL/min Glucose Level 272 H Calcium Level 8.9 Total Bilirubin 0.7 Direct Bilirubin 0.00 Indirect 0.7 Bilirubin Aspartate Amino 25 Transf (AST/SGOT) Alanine 47 Aminotransferase (ALT/SGPT) Alkaline 111 Phosphatase Total Protein 6.3 Albumin 3.1 L Globulin 3.20 Albumin/Globulin 0.96 Ratio Triglycerides 200 H Level Cholesterol Level 136 LDL Cholesterol, 72 Calculated HDL Cholesterol 24 L Cholesterol/HDL 5.6 Ratio Thyroid 5.580 H Stimulating Hormone (TSH) Bedside Glucose 232 H 211 Erythrocyte 3 Sedimentation Rate Subjective 24 Hr Interval Summary Free Text/Dictation right side weakness Exam/Review of Systems Exam Vitals Vital Signs Date Temp Pulse Resp B/P (MAP) Pulse Ox O2 O2 Flow FiO2 Time Delivery Rate 08/22/18 98.3 63 17 161/88 93 11:44 (112) 08/21/18 Room Air 20:59 08/21/18 2 20:01 Intake and Output 08/21/18 08/21/18 08/22/18 1515:00 23:00 07:00 IntakeIntake Total 50 ml OutputOutput Total 200 ml 600 ml BalanceBalance -200 ml -550 ml Constitutional: alert, oriented, well developed Psych: no complaints, nl mood/affect Head: normocephalic, atraumatic Eyes: nl conjunctiva, EOMI, nl lids, PERRL ENMT: nl external ears & nose, nl lips & teeth, nl nasal mucosa & septum Neck: supple, non-tender Respiratory: clear to auscultation, normal air movement; No congested cough, No crackles/rales, No diminished breath sounds, No intercostal retraction, No labored breathing, No respirations, No tactile fremitus, No wheezing, No other Cardiovascular: regular rate and rhythm, nl pulses; No bruits, No diastolic murmur, No edema, No gallop, No irregular rhythm, No jugular venous distention (JVD), No murmurs/extra sounds, No rub, No systolic murmur, No S3, No S4, No other Gastrointestinal: soft, nl liver, spleen, non-tender; No ascites, No bowel sounds, No distended, No firm, No hepatomegaly, No mass, No rebound or guarding, No splenomegaly, No surgical scars, No tender, No other Musculoskeletal: nl extremities to inspection Extremities: normal pulses; No calf tenderness, No cyanosis, No clubbing, No edema, No pitting pedal edema, No palpable cord, No tenderness, No other Neurological: [employer] II-XII intact, nl mental status, nl speech, other (4/5 LUE/LLE) Results Results 24hrs Laboratory Tests Test 08/21/18 18:43 08/21/18 19:00 08/21/18 19:04 08/21/18 19:05 Bedside Glucose 304 H 267 H White Blood Count 6.0 Red Blood Count 4.95 Hemoglobin 15.4 Hematocrit 44.7 Mean Corpuscular 90.3 Volume Mean Corpuscular 31.1 Hemoglobin Mean Corpuscular 34.5 Hemoglobin Concen t Red Cell 12.6 Distribution Width Platelet Count 159 Mean Platelet 11.7 H Volume Immature 0.200 Granulocytes % Neutrophils % 52.0 Lymphocytes % 29.8 Monocytes % 12.0 H Eosinophils % 5.0 Basophils % 1.0 Nucleated Red 0.0 Blood Cells % Immature 0.010 Granulocytes # Neutrophils # 3.1 Lymphocytes # 1.8 Monocytes # 0.7 Eosinophils # 0.3 Basophils # 0.1 Nucleated Red 0.0 Blood Cells # Sodium Level 135 Potassium Level 4.1 Chloride Level 103 Carbon Dioxide 24 Level Anion Gap 8 Blood Urea 21 H Nitrogen Creatinine 1.03 Est Glomerular > 60 Filtrat Rate mL/min Glucose Level 286 #H Hemoglobin A1c 12.3 H Calcium Level 8.8 Phosphorus Level 4.5 Magnesium Level 1.8 Blood Gas Blood venous Specimen Source Arterial Blood 08/21/2018 8:42:5 Date Drawn 1 PM Arterial Blood VENOUS LINE Gas Puncture Site Arnold Test N/A Venous Blood pH 7.384 Venous Blood pCO2 40.5 (Temp Corrected) Venous Blood pO2 63.4 H (Temp Corrected) Venous Blood HCO3 23.6 Venous Blood 91.7 H Oxygen Saturation Venous Blood Base -1.3 Excess Venous Blood 16.1 Total Hemoglobin Venous Blood 91.1 Oxyhemoglobin Venous Blood 0.2 Methemoglobin Carboxyhemoglobin 0.5 Blood Gas 37.0 Temperature Blood Gas NASAL CANNULA Modality FiO2 30.0 Blood Gas AA Notified Whom Blood Gas 08/21/2018 8:49:4 Notified Time 4 PM Test 08/21/18 19:30 08/21/18 20:34 08/21/18 21:51 08/22/18 02:07 Urine Color YELLOW Urine Clarity CLEAR Urine pH 6.0 Urine Specific 1.021 [place] Urine Ketones NEGATIVE Urine Nitrite NEGATIVE Urine Bilirubin NEGATIVE Urine NEGATIVE Urobilinogen Urine Leukocyte NEGATIVE Esterase Urine Microscopic 0 RBC Urine Microscopic 1 WBC Urine Hemoglobin NEGATIVE Urine Glucose 3+ H Urine Total 2+ H Protein Urine Opiates Negative Screen Urine Negative Barbiturates Urine Negative Amphetamines Screen Urine Negative Benzodiazepines Screen Urine Cocaine Negative Screen Urine Negative Cannabinoids Bedside Glucose 233 H 213 246 H Test 08/22/18 06:04 08/22/18 08:15 08/22/18 11:27 08/22/18 12:03 White Blood Count 7.1 Red Blood Count 4.86 Hemoglobin 15.0 Hematocrit 44.1 Mean Corpuscular 90.7 Volume Mean Corpuscular 30.9 Hemoglobin Mean Corpuscular 34.0 Hemoglobin Concen t Red Cell 12.7 Distribution Width Platelet Count 162 Mean Platelet 12.1 H Volume Immature 0.300 Granulocytes % Neutrophils % 60.9 Lymphocytes % 23.5 Monocytes % 10.3 Eosinophils % 4.4 Basophils % 0.6 Nucleated Red 0.0 Blood Cells % Immature 0.020 Granulocytes # Neutrophils # 4.3 Lymphocytes # 1.7 Monocytes # 0.7 Eosinophils # 0.3 Basophils # 0.0 Nucleated Red 0.0 Blood Cells # Sodium Level 139 Potassium Level 3.6 Chloride Level 106 Carbon Dioxide 26 Level Anion Gap 7 Blood Urea 23 H Nitrogen Creatinine 0.96 Est Glomerular > 60 Filtrat Rate mL/min Glucose Level 272 H Calcium Level 8.9 Total Bilirubin 0.7 Direct Bilirubin 0.00 Indirect 0.7 Bilirubin Aspartate Amino 25 Transf (AST/SGOT) Alanine 47 Aminotransferase (ALT/SGPT) Alkaline 111 Phosphatase Total Protein 6.3 Albumin 3.1 L Globulin 3.20 Albumin/Globulin 0.96 Ratio Triglycerides 200 H Level Cholesterol Level 136 LDL Cholesterol, 72 Calculated HDL Cholesterol 24 L Cholesterol/HDL 5.6 Ratio Thyroid 5.580 H Stimulating Hormone (TSH) Bedside Glucose 232 H 211 Erythrocyte 3 Sedimentation Rate Medications Medication Current Medications IV Flush (NS 3 ml) 3 ml PER PROTOCOL IV ; Start 08/21/18 at 20:00 Ondansetron HCl (Zofran Inj) 4 mg Q6H PRN IV NAUSEA/VOMITING; Start 08/21/18 at 20:00 Acetaminophen (Tylenol Tab) 650 mg Q6H PRN PO .PAIN 1-3 OR TEMP; Start 08/21/18 at 20:00 Docusate Sodium (Colace) 100 mg Q12H PRN PO .CONSTIPATION; Start 08/21/18 at 20:00 Bisacodyl (Dulcolax) 5 mg DAILY PRN PO .CONSTIPATION; Start 08/21/18 at 20:00 Diagnostic Test (Pha) (Accu-Chek) 1 ea 02 XX Last administered on 08/22/18at 02:24; Admin Dose 1 EA; Start 08/22/18 at 02:00 Insulin Aspart (Novolog Insulin Pen) NOVOLOG *MILD* ALGORITHM WITH MEALS BEDTIME SC Last administered on 08/22/18at 12:08; Admin Dose 2 UNIT; Start 08/21/18 at 21:00 Miscellaneous Information 1 ea NOTE XX ; Start 08/21/18 at 20:00 Glucose (Glutose) 15 gm Q15M PRN PO DECREASED GLUCOSE; Start 08/21/18 at 20:00 Glucose (Glutose) 22.5 gm Q15M PRN PO DECREASED GLUCOSE; Start 08/21/18 at 20:00 Dextrose (D50w Syringe) 25 ml Q15M PRN IV DECREASED GLUCOSE; Start 08/21/18 at 20:00 Dextrose (D50w Syringe) 50 ml Q15M PRN IV DECREASED GLUCOSE; Start 08/21/18 at 20:00 Glucagon (Glucagen) 1 mg Q15M PRN IM DECREASED GLUCOSE; Start 08/21/18 at 20:00 Glucose (Glutose) 15 gm Q15M PRN BUCCAL DECREASED GLUCOSE; Start 08/21/18 at 20:00 Hydralazine HCl (Apresoline) 10 mg Q4H PRN IV ELEVATED BLOOD PRESSURE; Start 08/22/18 at 02:00 Insulin Glargine (Lantus) 20 units DAILY@0800 SC ; Start 08/23/18 at 08:00 Insulin Aspart (Novolog Insulin Pen) 4 unit WITH MEALS SC Last administered on 08/22/18at 12:07; Admin Dose 4 UNIT; Start 08/22/18 at 07:55 Lisinopril (Zestril) 20 mg DAILY PO Last administered on 08/22/18at 08:21; Admin Dose 20 MG; Start 08/22/18 at 09:00 Amlodipine Besylate (Norvasc) 2.5 mg DAILY PO Last administered on 08/22/18at 08:21; Admin Dose 2.5 MG; Start 08/22/18 at 09:00 Atorvastatin Calcium (Lipitor) 40 mg HS PO ; Start 08/22/18 at 21:00 Aspirin (Halfprin) 81 mg DAILY PO Last administered on 08/22/18at 12:01; Admin Dose 81 MG; Start 08/22/18 at 11:30 MICHELLE GIBBONS MD Aug 22, 2018 15:26
[2018-08-22] MEDS: ATORVASTATIN 40 MG TAB PO SCH (20:11)
[2018-08-22] MEDS ORDERED: ATORVASTATIN 80 MG TAB PO SCH (21:00)
[2018-08-23] VITALS (7 sets, daily range): BP systolic 129–171; BP diastolic 75–96; PULSE 59–69; RESP 17–18
[2018-08-23] MEDS: ACCU-CHEK XX SCH (02:51)
[2018-08-23] MEDS ORDERED: AMLODIPINE 5 MG TAB PO SCH (09:00)
[2018-08-23] MEDS: ASPIRIN (EC) 81 MG TAB PO SCH (09:06)
[2018-08-23] MEDS: LISINOPRIL 20 MG TAB PO SCH (09:07)
[2018-08-23] MEDS: ENOXAPARIN 40 MG/0.4 ML SYG SC SCH (09:09)
[2018-08-23] MEDS: INSULIN GLARGINE [LANTus] (100 UNITS/ML) SYG SC SCH (09:09)
[2018-08-23] MEDS: INSULIN ASPART [NOVOLOG] 3 ML PEN SC SCH ×7 (09:09→22:30)
--- NOTE | 2018-08-23 13:56 | CONS ---
Assessment/Plan Assessment/Plan Assessment/Plan (Recall) 67M c/ multiple cerebrovascular risk factors, who presents for evaluation of Left sided weakness x 1 week.. MRI brain confirmed an acute R pontine lacune.. (and chronic infarcts..) MRA head was notable for intracranial stenoses, c/w athero MRA neck was unrevealing A1C > 12% LDL 72, CUS is neg, UDS neg, RPR neg; ESR wnl P: Lipitor daily for secondary stroke prevention Asa/Plavix daily for 3 months, then Plavix daily thereafter...due to intracranial athero PT/OT as necessary BP/Glucose control and other medical management per primary Will follow clinically Consultation Date/Type/Reason Admit Date/Time Aug 21, 2018 at 19:47 Type of Consult Neurology Reason for Consultation left sided weakness Requesting Provider: RUPA SQUIRES Date/Time of Note DATE: 08/23/18 TIME: 13:52 24 HR Interval Summary Free Text/Dictation s/p MRI brain Exam/Review of Systems Exam Vitals Vital Signs Date Temp Pulse Resp B/P (MAP) Pulse Ox O2 O2 Flow FiO2 Time Delivery Rate 08/23/18 98.7 67 18 154/92 8 11:21 (112) 08/21/18 Room Air 20:59 08/21/18 2 20:01 Intake and Output 08/22/18 08/22/18 08/23/18 1515:00 23:00 07:00 IntakeIntake Total 233 ml 500 ml 480 ml BalanceBalance 233 ml 500 ml 480 ml Results Result Diagram: 08/22/18 0604 08/23/18 0636 Results 24hrs Laboratory Tests Test 08/22/18 17:45 08/22/18 20:07 08/23/18 02:44 08/23/18 06:36 Bedside Glucose 189 246 H 137 Sodium Level 142 Potassium Level 3.8 Chloride Level 106 Carbon Dioxide Level 29 Anion Gap 7 Blood Urea Nitrogen 23 H Creatinine 0.93 Est Glomerular > 60 Filtrat Rate mL/min Glucose Level 171 # Calcium Level 9.2 Test 08/23/18 06:38 08/23/18 09:00 08/23/18 11:57 Thyroid Stimulating 5.680 H Hormone (TSH) Free Thyroxine 0.88 Bedside Glucose 250 H 172 Medications Medication Current Medications IV Flush (NS 3 ml) 3 ml PER PROTOCOL IV ; Start 08/21/18 at 20:00 Ondansetron HCl (Zofran Inj) 4 mg Q6H PRN IV NAUSEA/VOMITING; Start 08/21/18 at 20:00 Acetaminophen (Tylenol Tab) 650 mg Q6H PRN PO .PAIN 1-3 OR TEMP; Start 08/21/18 at 20:00 Docusate Sodium (Colace) 100 mg Q12H PRN PO .CONSTIPATION; Start 08/21/18 at 20:00 Bisacodyl (Dulcolax) 5 mg DAILY PRN PO .CONSTIPATION; Start 08/21/18 at 20:00 Diagnostic Test (Pha) (Accu-Chek) 1 ea 02 XX Last administered on 08/23/18at 02:51; Admin Dose 1 EA; Start 08/22/18 at 02:00 Insulin Aspart (Novolog Insulin Pen) NOVOLOG *MILD* ALGORITHM WITH MEALS BEDTIME SC Last administered on 08/23/18at 12:01; Admin Dose 1 UNIT; Start 08/21/18 at 21:00 Miscellaneous Information 1 ea NOTE XX ; Start 08/21/18 at 20:00 Glucose (Glutose) 15 gm Q15M PRN PO DECREASED GLUCOSE; Start 08/21/18 at 20:00 Glucose (Glutose) 22.5 gm Q15M PRN PO DECREASED GLUCOSE; Start 08/21/18 at 20:00 Dextrose (D50w Syringe) 25 ml Q15M PRN IV DECREASED GLUCOSE; Start 08/21/18 at 20:00 Dextrose (D50w Syringe) 50 ml Q15M PRN IV DECREASED GLUCOSE; Start 08/21/18 at 20:00 Glucagon (Glucagen) 1 mg Q15M PRN IM DECREASED GLUCOSE; Start 08/21/18 at 20:00 Glucose (Glutose) 15 gm Q15M PRN BUCCAL DECREASED GLUCOSE; Start 08/21/18 at 20:00 Hydralazine HCl (Apresoline) 10 mg Q4H PRN IV ELEVATED BLOOD PRESSURE; Start 08/22/18 at 02:00 Insulin Glargine (Lantus) 20 units DAILY@0800 SC Last administered on 08/23/18at 09:09; Admin Dose 20 UNITS; Start 08/23/18 at 08:00 Insulin Aspart (Novolog Insulin Pen) 4 unit WITH MEALS SC Last administered on 08/23/18 12:01; Admin Dose 4 UNIT; Start 08/22/18 at 07:55 Lisinopril (Zestril) 20 mg DAILY PO Last administered on 08/23/18 09:07; Admin Dose 20 MG; Start 08/22/18 at 09:00 Atorvastatin Calcium (Lipitor) 40 mg HS PO Last administered on 08/22/18 20:11; Admin Dose 40 MG; Start 08/22/18 at 21:00 Aspirin (Halfprin) 81 mg DAILY PO Last administered on 08/23/18 09:06; Admin Dose 81 MG; Start 08/22/18 at 11:30 Amlodipine Besylate (Norvasc) 5 mg DAILY PO Last administered on 08/23/18 09:07; Admin Dose 5 MG; Start 08/23/18 at 09:00 Enoxaparin Sodium (Lovenox) 40 mg DAILY SC Last administered on 08/23/18 09:09; Admin Dose 40 MG; Start 08/23/18 at 09:00 MATTHEW DOZIER Aug 23, 2018 13:56
[2018-08-23] MEDS ORDERED: CLOPIDOGREL 75 MG TAB PO ONE (14:00)
--- NOTE | 2018-08-23 15:32 | PN ---
Date/Time of Note Date/Time of Note DATE: 08/23/18 TIME: 15:22 Assessment/Plan VTE Prophylaxis Risk score (from Nsg)>0 risk: 5 SCD applied (from Nsg): Yes Pharmacological prophylaxis: LMWH Lines/Catheters IV Catheter Type (from Nrsg): Peripheral IV Assessment/Plan Assessment/Plan 1. 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 DM, on lantus, ISS 4. HTN, increase norvasc, continue lisinopril 5. Dyslipidemia, on lipitor 6. CAD, s/p CABG in 2017, stable 7. TSH 5.58, FT4 0.88, repeat per PCP 8. DVT prophylaxis: lovenox 9. ARU evaluation Result Diagram: 08/22/18 0604 08/23/18 0636 Results 24hrs Laboratory Tests Test 08/22/18 17:45 08/22/18 20:07 08/23/18 02:44 08/23/18 06:36 Bedside Glucose 189 246 H 137 Sodium Level 142 Potassium Level 3.8 Chloride Level 106 Carbon Dioxide Level 29 Anion Gap 7 Blood Urea Nitrogen 23 H Creatinine 0.93 Est Glomerular > 60 Filtrat Rate mL/min Glucose Level 171 # Calcium Level 9.2 Test 08/23/18 06:38 08/23/18 09:00 08/23/18 11:57 Thyroid Stimulating 5.680 H Hormone (TSH) Free Thyroxine 0.88 Bedside Glucose 250 H 172 Subjective 24 Hr Interval Summary Free Text/Dictation left sided weakness Exam/Review of Systems Exam Vitals Vital Signs Date Temp Pulse Resp B/P (MAP) Pulse Ox O2 O2 Flow FiO2 Time Delivery Rate 08/23/18 97.7 64 17 168/88 97 15:19 (114) 08/21/18 Room Air 20:59 08/21/18 2 20:01 Intake and Output 08/22/18 08/22/18 08/23/18 1515:00 23:00 07:00 IntakeIntake Total 233 ml 500 ml 480 ml BalanceBalance 233 ml 500 ml 480 ml Constitutional: alert, oriented, well developed Psych: no complaints, nl mood/affect Head: normocephalic, atraumatic Eyes: nl conjunctiva, EOMI, nl lids ENMT: nl external ears & nose, nl lips & teeth, nl nasal mucosa & septum Neck: supple, non-tender Respiratory: clear to auscultation, normal air movement; No congested cough, No crackles/rales, No diminished breath sounds, No intercostal retraction, No labored breathing, No respirations, No tactile fremi tus, No wheezing, No other Cardiovascular: regular rate and rhythm, nl pulses; No bruits, No diastolic murmur, No edema, No gallop, No irregular rhythm, No jugular venous distention (JVD), No murmurs/extra sounds, No rub, No systolic murmur, No S3, No S4, No other Gastrointestinal: soft, nl liver, spleen, non-tender; No ascites, No bowel sounds, No distended, No firm, No hepatomegaly, No mass, No rebound or guarding, No splenomegaly, No surgical scars, No tender, No other Musculoskeletal: nl extremities to inspection Extremities: normal pulses; No calf tenderness, No cyanosis, No clubbing, No edema, No pitting pedal edema, No palpable cord, No tenderness, No other 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, nl mental status, nl speech, other (LUE/LLE 4/5) Skin: nl turgor Results Results 24hrs Laboratory Tests Test 08/22/18 17:45 08/22/18 20:07 08/23/18 02:44 08/23/18 06:36 Bedside Glucose 189 246 H 137 Sodium Level 142 Potassium Level 3.8 Chloride Level 106 Carbon Dioxide Level 29 Anion Gap 7 Blood Urea Nitrogen 23 H Creatinine 0.93 Est Glomerular > 60 Filtrat Rate mL/min Glucose Level 171 # Calcium Level 9.2 Test 08/23/18 06:38 08/23/18 09:00 08/23/18 11:57 Thyroid Stimulating 5.680 H Hormone (TSH) Free Thyroxine 0.88 Bedside Glucose 250 H 172 Medications Medication Current Medications IV Flush (NS 3 ml) 3 ml PER PROTOCOL IV ; Start 08/21/18 at 20:00 Ondansetron HCl (Zofran Inj) 4 mg Q6H PRN IV NAUSEA/VOMITING; Start 08/21/18 at 20:00 Acetaminophen (Tylenol Tab) 650 mg Q6H PRN PO .PAIN 1-3 OR TEMP; Start 08/21/18 at 20:00 Docusate Sodium (Colace) 100 mg Q12H PRN PO .CONSTIPATION; Start 08/21/18 at 20:00 Bisacodyl (Dulcolax) 5 mg DAILY PRN PO .CONSTIPATION; Start 08/21/18 at 20:00 Diagnostic Test (Pha) (Accu-Chek) 1 ea 02 XX Last administered on 08/23/18at 02:51; Admin Dose 1 EA; Start 08/22/18 at 02:00 Insulin Aspart (Novolog Insulin Pen) NOVOLOG *MILD* ALGORITHM WITH MEALS BEDTIME SC Last administered on 08/23/18at 12:01; Admin Dose 1 UNIT; Start 08/21/18 at 21:00 Miscellaneous Information 1 ea NOTE XX ; Start 08/21/18 at 20:00 Glucose (Glutose) 15 gm Q15M PRN PO DECREASED GLUCOSE; Start 08/21/18 at 20:00 Glucose (Glutose) 22.5 gm Q15M PRN PO DECREASED GLUCOSE; Start 08/21/18 at 20:00 Dextrose (D50w Syringe) 25 ml Q15M PRN IV DECREASED GLUCOSE; Start 08/21/18 at 20:00 Dextrose (D50w Syringe) 50 ml Q15M PRN IV DECREASED GLUCOSE; Start 08/21/18 at 20:00 Glucagon (Glucagen) 1 mg Q15M PRN IM DECREASED GLUCOSE; Start 08/21/18 at 20:00 Glucose (Glutose) 15 gm Q15M PRN BUCCAL DECREASED GLUCOSE; Start 08/21/18 at 20:00 Hydralazine HCl (Apresoline) 10 mg Q4H PRN IV ELEVATED BLOOD PRESSURE; Start 08/22/18 at 02:00 Insulin Glargine (Lantus) 20 units DAILY@0800 SC Last administered on 08/23/18at 09:09; Admin Dose 20 UNITS; Start 08/23/18 at 08:00 Insulin Aspart (Novolog Insulin Pen) 4 unit WITH MEALS SC Last administered on 08/23/18at 12:01; Admin Dose 4 UNIT; Start 08/22/18 at 07:55 Lisinopril (Zestril) 20 mg DAILY PO Last administered on 08/23/18at 09:07; Admin Dose 20 MG; Start 08/22/18 at 09:00 Atorvastatin Calcium (Lipitor) 40 mg HS PO Last administered on 08/22/18at 20:11; Admin Dose 40 MG; Start 08/22/18 at 21:00 Aspirin (Halfprin) 81 mg DAILY PO Last administered on 08/23/18at 09:06; Admin Dose 81 MG; Start 08/22/18 at 11:30 Amlodipine Besylate (Norvasc) 5 mg DAILY PO Last administered on 08/23/18at 09:07; Admin Dose 5 MG; Start 08/23/18 at 09:00 Enoxaparin Sodium (Lovenox) 40 mg DAILY SC Last administered on 08/23/18at 09:09; Admin Dose 40 MG; Start 08/23/18 at 09:00 Clopidogrel Bisulfate (plaVIX) 75 mg DAILY PO ; Start 08/24/18 at 09:00 MICHELLE GIBBONS MD Aug 23, 2018 15:32
[2018-08-23] MEDS ORDERED: AMLODIPINE 5 MG TAB PO ONE (16:00)
--- NOTE | 2018-08-23 17:48 | RADRPT ---
Echocardiogram Report Patient Name: WENDY GASTELUMCANDELARIAIOPatient ID: [id number] : 1950 (67y 11m)Study Date: 08/22/2018 9:10:06 AM Gender: Cielocession #: [id number] Tech: Davis Chavarria [facility] Location: 603-A Ref.Physician: RUPA SQUIRES Height(Cm): BSA: Weight(Kg): Quality: AdequateOrder Physician: RUPA SQUIRES Account #: Procedures: Echocardiographic Report: Transthoracic echocardiogram with complete 2D, M-Mode, and doppler examination. Indications: Chest Pain w/ bubble study. Measurements: 2D/M Mode Doppler Measurement Value Normal Range Measurement Value Normal Range LVIDd 2D 5.1 [ 4.2 - 5.8 ] cm AV Peak Albaro 1.4 [ 100.0 - 170.0 ] cm/sec LVIDs 2D 3.7 [ 2.5 - 4.0 ] cm AV Peak PG 8.0 [ 2.0 - 9.0 ] mmHg LVPWd 2D 1.5 [ 0.6 - 1.0 ] cm LVOT Peak Albaro 0.9 [ 70.0 - 110.0 ] cm/sec IVSd 2D 1.5 [ 0.6 - 1.0 ] cm LVOT Peak PG 3.0 [ 2.0 - 6.0 ] mmHg AoR Diam 2D 3.2 [ 2.6 - 3.4 ] cm MV E Peak Albaro 1.1 [ 60.0 - 130.0 ] cm/sec EDV 2D 122.0 [ 62.0 - 150.0 ] ml MV A Peak Albaro 0.4 [ 100.0 - 120.0 ] cm/sec ESV 2D 57.4 [ 21.0 - 61.0 ] ml MV E/A 3.0 [ 0.8 - 1.5 ] ratio EF 2D 53.0 [ 52.0 - 72.0 ] percent MV Decel Time 197 [ 104 - 258 ] msec LA Dimen 2D 4.3 [ 3.0 - 4.0 ] cm Lat E` Albaro 0.1 [ 10.0 - 15.0 ] cm/sec Lateral E/E` 19.2 [ 1.0 - 2.0 ] ratio Med E` Albaro 0.1 cm/sec MV E/A 3.0 [ 0.8 - 1.5 ] ratio TR Peak Albaro 2.9 [ 100.0 - 280.0 ] cm/sec TR Peak PG 33.0 mmHg RVSP 36.0 [ 10.0 - 36.0 ] mmHg Findings: Left Ventricle: Normal left ventricular cavity size. Moderate concentric left ventricular hypertrophy. Mild left ventricular systolic dysfunction. Ejection fraction is visually estimated at 45 %. Tissue Doppler/Mitral Doppler indices are consistent with pseudonormalization with mildly elevated left atrial pressure (Stage II diastolic dysfunction). Right Ventricle: Normal right ventricular size. Normal right ventricular systolic function. Left Atrium: There is mild enlargement of left atrium. Right Atrium: The right atrium is normal in size. Atrial Septum: Bubble study was performed with and with out valsalva indicating no evidence of intra atrial shunt. Mitral Valve: Mild mitral leaflet calcification. Mild mitral annular calcification. Mild mitral valve regurgitation. Aortic Valve: No significant aortic stenosis or insufficiency. Aortic cusps appear mildly calcified. Tricuspid Valve: Normal appearance of the tricuspid valve. The estimated Peak RVSP is 36 mmHg. There is mild tricuspid regurgitation. Pericardium: Normal pericardium with no significant pericardial effusion. Aorta: Normal aortic root. IVC: Normal size and normal respiratory collapse consistent with normal right atrial pressure. Conclusions: Normal left ventricular cavity size. Moderate concentric left ventricular hypertrophy. Mild left ventricular systolic dysfunction. Ejection fraction is visually estimated at 45 %. Tissue Doppler/Mitral Doppler indices are consistent with pseudonormalization with mildly elevated left atrial pressure (Stage II diastolic dysfunction). Normal right ventricular size. Normal right ventricular systolic function. There is mild enlargement of left atrium. The right atrium is normal in size. Mild mitral valve regurgitation. No significant aortic stenosis or insufficiency. The estimated Peak RVSP is 36 mmHg. There is mild tricuspid regurgitation. Normal pericardium with no significant pericardial effusion. Bubble study was performed with and with out valsalva indicating no evidence of intra atrial shunt. Electronically Signed By: Eddi Flower 2018-08-23 17:47:20 PDT
[2018-08-23] MEDS: ATORVASTATIN 40 MG TAB PO SCH (21:02)
[2018-08-24] MEDS: ACCU-CHEK XX SCH (01:33)
[2018-08-24 03:39] VITALS: BP 132/80; PULSE 61; RESP 17
[2018-08-24 07:36] VITALS: BP 132/84; PULSE 59; RESP 16
[2018-08-24] MEDS: ENOXAPARIN 40 MG/0.4 ML SYG SC SCH (08:09)
[2018-08-24] MEDS: INSULIN GLARGINE [LANTus] (100 UNITS/ML) SYG SC SCH (08:10)
[2018-08-24] MEDS: INSULIN ASPART [NOVOLOG] 3 ML PEN SC SCH ×7 (08:10→21:26)
[2018-08-24] MEDS: CLOPIDOGREL 75 MG TAB PO SCH (08:24)
[2018-08-24] MEDS: ASPIRIN (EC) 81 MG TAB PO SCH (08:24)
[2018-08-24] MEDS: LISINOPRIL 20 MG TAB PO SCH (08:25)
[2018-08-24] MEDS: AMLODIPINE 10 MG TAB PO SCH (08:29)
--- NOTE | 2018-08-24 12:26 | CONS ---
Assessment/Plan Assessment/Plan Assessment/Plan (Recall) 67M c/ multiple cerebrovascular risk factors, who presents for evaluation of Left sided weakness x 1 week.. MRI brain confirmed an acute R pontine lacune.. (and chronic infarcts..) MRA head was notable for intracranial stenoses, c/w athero MRA neck was unrevealing A1C > 12% LDL 72, CUS is neg, UDS neg, RPR neg; ESR wnl P: Lipitor daily for secondary stroke prevention Asa/Plavix daily for 3 months, then Plavix daily thereafter...due to intracranial athero PT/OT as necessary BP/Glucose control and other medical management per primary Will follow clinically Consultation Date/Type/Reason Admit Date/Time Aug 21, 2018 at 19:47 Type of Consult Neurology Reason for Consultation left sided weakness Requesting Provider: RUPA SQUIRES Date/Time of Note DATE: 08/24/18 TIME: 12:25 24 HR Interval Summary Free Text/Dictation Continues acute care Exam/Review of Systems Exam Vitals Vital Signs Date Temp Pulse Resp B/P (MAP) Pulse Ox O2 O2 Flow FiO2 Time Delivery Rate 08/24/18 98.7 59 16 132/84 96 07:36 (100) 08/21/18 Room Air 20:59 08/21/18 2 20:01 Intake and Output 08/23/18 08/23/18 08/24/18 1515:00 23:00 07:00 IntakeIntake Total 750 ml 500 ml BalanceBalance 750 ml 500 ml Exam PE: Gen Appearance: No Apparent Distress HEENT: Normocephalic Cardiovascular: Regular rate Lungs: Clear bilaterally Abdomen: Soft Extremities: Dry NE: The patient was alert and oriented. Language was normal. Fund of knowledge was normal. Pupils were equal and reactive to light. There was no afferent pupillary defect. Visual howe were normal. Funduscopic examination was limited. Extra-ocular movements were full. Ptosis was absent. There was no nystagmus. Facial sensation was normal. Face was symmetric with normal strength. Hearing was intact. Palate movements were normal. Neck strength was normal. There was normal tongue bulk and speed of movement. Tone was normal. Muscle bulk was normal. I did not see fasciculations. Mild left hemiparesis. Vibration sensation was normal. Temperature and pinprick sensation was normal. Rapid alternating movements were normal. There was no dysmetria. There was no in tention tremor. Gait was deferred due to bedrest. Arm and leg reflexes were symmetric. Flemign's sign was absent. Plantar responses were flexor. Results Result Diagram: 08/22/18 0604 08/23/18 0636 Results 24hrs Laboratory Tests Test 08/23/18 17:50 08/23/18 21:58 08/24/18 01:23 08/24/18 07:58 Bedside Glucose 197 277 H 188 211 Test 08/24/18 11:59 Bedside Glucose 184 Medications Medication Current Medications IV Flush (NS 3 ml) 3 ml PER PROTOCOL IV ; Start 08/21/18 at 20:00 Ondansetron HCl (Zofran Inj) 4 mg Q6H PRN IV NAUSEA/VOMITING; Start 08/21/18 at 20:00 Acetaminophen (Tylenol Tab) 650 mg Q6H PRN PO .PAIN 1-3 OR TEMP; Start 08/21/18 at 20:00 Docusate Sodium (Colace) 100 mg Q12H PRN PO .CONSTIPATION; Start 08/21/18 at 20:00 Bisacodyl (Dulcolax) 5 mg DAILY PRN PO .CONSTIPATION; Start 08/21/18 at 20:00 Diagnostic Test (Pha) (Accu-Chek) 1 ea 02 XX Last administered on 08/24/18at 01:33; Admin Dose 1 EA; Start 08/22/18 at 02:00 Insulin Aspart (Novolog Insulin Pen) NOVOLOG *MILD* ALGORITHM WITH MEALS BEDTIME SC Last administered on 08/24/18at 12:03; Admin Dose 2 UNIT; Start 08/21/18 at 21:00 Miscellaneous Information 1 ea NOTE XX ; Start 08/21/18 at 20:00 Glucose (Glutose) 15 gm Q15M PRN PO DECREASED GLUCOSE; Start 08/21/18 at 20:00 Glucose (Glutose) 22.5 gm Q15M PRN PO DECREASED GLUCOSE; Start 08/21/18 at 20:00 Dextrose (D50w Syringe) 25 ml Q15M PRN IV DECREASED GLUCOSE; Start 08/21/18 at 20:00 Dextrose (D50w Syringe) 50 ml Q15M PRN IV DECREASED GLUCOSE; Start 08/21/18 at 20:00 Glucagon (Glucagen) 1 mg Q15M PRN IM DECREASED GLUCOSE; Start 08/21/18 at 20:00 Glucose (Glutose) 15 gm Q15M PRN BUCCAL DECREASED GLUCOSE; Start 08/21/18 at 20:00 Hydralazine HCl (Apresoline) 10 mg Q4H PRN IV ELEVATED BLOOD PRESSURE; Start 08/22/18 at 02:00 Insulin Glargine (Lantus) 20 units DAILY@0800 SC Last administered on 08/24/18at 08:10; Admin Dose 20 UNITS; Start 08/23/18 at 08:00 Insulin Aspart (Novolog Insulin Pen) 4 unit WITH MEALS SC Last administered on 08/24/18 12:04; Admin Dose 4 UNIT; Start 08/22/18 at 07:55 Lisinopril (Zestril) 20 mg DAILY PO Last administered on 08/24/18 08:25; Admin Dose 20 MG; Start 08/22/18 at 09:00 Atorvastatin Calcium (Lipitor) 40 mg HS PO Last administered on 08/23/18 21:02; Admin Dose 40 MG; Start 08/22/18 at 21:00 Aspirin (Halfprin) 81 mg DAILY PO Last administered on 08/24/18 08:24; Admin D ose 81 MG; Start 08/22/18 at 11:30 Enoxaparin Sodium (Lovenox) 40 mg DAILY SC Last administered on 08/24/18 08:09; Admin Dose 40 MG; Start 08/23/18 at 09:00 Clopidogrel Bisulfate (plaVIX) 75 mg DAILY PO Last administered on 08/24/18 08:24; Admin Dose 75 MG; Start 08/24/18 at 09:00 Amlodipine Besylate (Norvasc) 10 mg DAILY PO Last administered on 08/24/18 08:29; Admin Dose 10 MG; Start 08/24/18 at 09:00 MATTHEW DOZIER Aug 24, 2018 12:26
[2018-08-24 12:28] VITALS: BP 155/85; PULSE 65; RESP 18
--- NOTE | 2018-08-24 13:37 | PN ---
Date/Time of Note Date/Time of Note DATE: 08/24/18 TIME: 13:35 Assessment/Plan VTE Prophylaxis Risk score (from Ns)>0 risk: 2 SCD applied (from Ns): Yes Pharmacological prophylaxis: LMWH Lines/Catheters IV Catheter Type (from Nrsg): [place] Assessment/Plan Assessment/Plan 1. 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 DM, on lantus, ISS, increase lantus 4. HTN, increase norvasc, continue lisinopril 5. Dyslipidemia, on lipitor 6. CAD, s/p CABG in 2017, stable 7. TSH 5.58, FT4 0.88, repeat per PCP 8. DVT prophylaxis: lovenox 9. Awaiting for ARU evaluation Result Diagram: 08/22/18 0604 08/23/18 0636 Results 24hrs Laboratory Tests Test 08/23/18 17:50 08/23/18 21:58 08/24/18 01:23 08/24/18 07:58 Bedside Glucose 197 277 H 188 211 Test 08/24/18 11:59 Bedside Glucose 184 Subjective 24 Hr Interval Summary Free Text/Dictation no event, left isede weakness Exam/Review of Systems Exam Vitals Vital Signs Date Temp Pulse Resp B/P (MAP) Pulse Ox O2 O2 Flow FiO2 Time Delivery Rate 08/24/18 98.6 65 18 155/85 97 12:28 (108) 08/21/18 Room Air 20:59 08/21/18 2 20:01 Intake and Output 08/23/18 08/23/18 08/24/18 1515:00 23:00 07:00 IntakeIntake Total 750 ml 500 ml BalanceBalance 750 ml 500 ml Constitutional: alert, oriented, well developed Psych: no complaints, nl mood/affect Head: normocephalic, atraumatic Eyes: nl conjunctiva, EOMI, nl lids ENMT: nl external ears & nose, nl lips & teeth, nl nasal mucosa & septum Neck: supple, non-tender Respiratory: clear to auscultation, normal air movement; No congested cough, No crackles/rales, No diminished breath sounds, No intercostal retraction, No labored breathing, No respirations, No tactile fremitus, No wheezing, No other Cardiovascular: regular rate and rhythm, nl pulses; No bruits, No diastolic murmur, No edema, No gallop, No irregular rhythm, No jugular venous distention (JVD), No murmurs/extra sounds, No rub, No systolic murmur, No S3, No S4, No other Gastrointestinal: soft, nl liver, spleen, non-tender Musculoskeletal: nl extremities to inspection Extremities: normal pulses; No calf tenderness, No cyanosis, No clubbing, No edema, No pitting pedal edema, No palpable cord, No tenderness, No other 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, nl mental status, nl speech, other (LUE/LLE 4/5) Results Results 24hrs Laboratory Tests Test 08/23/18 17:50 08/23/18 21:58 08/24/18 01:23 08/24/18 07:58 Bedside Glucose 197 277 H 188 211 Test 08/24/18 11:59 Bedside Glucose 184 Medications Medication Current Medications IV Flush (NS 3 ml) 3 ml PER PROTOCOL IV ; Start 08/21/18 at 20:00 Ondansetron HCl (Zofran Inj) 4 mg Q6H PRN IV NAUSEA/VOMITING; Start 08/21/18 at 20:00 Acetaminophen (Tylenol Tab) 650 mg Q6H PRN PO .PAIN 1-3 OR TEMP; Start 08/21/18 at 20:00 Docusate Sodium (Colace) 100 mg Q12H PRN PO .CONSTIPATION; Start 08/21/18 at 20:00 Bisacodyl (Dulcolax) 5 mg DAILY PRN PO .CONSTIPATION; Start 08/21/18 at 20:00 Diagnostic Test (Pha) (Accu-Chek) 1 ea 02 XX Last administered on 08/24/18at 01:33; Admin Dose 1 EA; Start 08/22/18 at 02:00 Insulin Aspart (Novolog Insulin Pen) NOVOLOG *MILD* ALGORITHM WITH MEALS BEDTIME SC Last administered on 08/24/18at 12:03; Admin Dose 2 UNIT; Start 08/21/18 at 21:00 Miscellaneous Information 1 ea NOTE XX ; Start 08/21/18 at 20:00 Glucose (Glutose) 15 gm Q15M PRN PO DECREASED GLUCOSE; Start 08/21/18 at 20:00 Glucose (Glutose) 22.5 gm Q15M PRN PO DECREASED GLUCOSE; Start 08/21/18 at 20:00 Dextrose (D50w Syringe) 25 ml Q15M PRN IV DECREASED GLUCOSE; Start 08/21/18 at 20:00 Dextrose (D50w Syringe) 50 ml Q15M PRN IV DECREASED GLUCOSE; Start 08/21/18 at 20:00 Glucagon (Glucagen) 1 mg Q15M PRN IM DECREASED GLUCOSE; Start 08/21/18 at 20:00 Glucose (Glutose) 15 gm Q15M PRN BUCCAL DECREASED GLUCOSE; Start 08/21/18 at 20:00 Hydralazine HCl (Apresoline) 10 mg Q4H PRN IV ELEVATED BLOOD PRESSURE; Start 08/22/18 at 02:00 Insulin Glargine (Lantus) 20 units DAILY@0800 SC Last administered on 08/24/18at 08:10; Admin Dose 20 UNITS; Start 08/23/18 at 08:00 Insulin Aspart (Novolog Insulin Pen) 4 unit WITH MEALS SC Last administered on 08/24/18at 12:04; Admin Dose 4 UNIT; Start 08/22/18 at 07:55 Lisinopril (Zestril) 20 mg DAILY PO Last administered on 08/24/18at 08:25; Admin Dose 20 MG; Start 08/22/18 at 09:00 Atorvastatin Calcium (Lipitor) 40 mg HS PO Last administered on 08/23/18at 21:02; Admin Dose 40 MG; Start 08/22/18 at 21:00 Aspirin (Halfprin) 81 mg DAILY PO Last administered on 08/24/18at 08:24; Admin Dose 81 MG; Start 08/22/18 at 11:30 Enoxaparin Sodium (Lovenox) 40 mg DAILY SC Last administered on 08/24/18at 08:09; Admin Dose 40 MG; Start 08/23/18 at 09:00 Clopidogrel Bisulfate (plaVIX) 75 mg DAILY PO Last administered on 08/24/18at 08:24; Admin Dose 75 MG; Start 08/24/18 at 09:00 Amlodipine Besylate (Norvasc) 10 mg DAILY PO Last administered on 08/24/18at 08:29; Admin Dose 10 MG; Start 08/24/18 at 09:00 MICHELLE GIBBONS MD Aug 24, 2018 13:37
[2018-08-24 15:33] VITALS: BP 146/80; PULSE 61; RESP 18
[2018-08-24 20:00] VITALS: BP 154/82; PULSE 69; RESP 18
[2018-08-24] MEDS: ATORVASTATIN 40 MG TAB PO SCH (21:23)
[2018-08-25 00:15] VITALS: BP 138/73; PULSE 63; RESP 17
[2018-08-25] MEDS: ACCU-CHEK XX SCH (02:33)
[2018-08-25 04:00] VITALS: BP 136/85; PULSE 67; RESP 16
[2018-08-25 07:55] VITALS: BP 145/83; PULSE 61; RESP 17
[2018-08-25] MEDS: INSULIN ASPART [NOVOLOG] 3 ML PEN SC SCH ×5 (07:57→17:16)
[2018-08-25] MEDS ORDERED: INSULIN GLARGINE [LANTus] (100 UNITS/ML) SYG SC SCH (08:00)
[2018-08-25] MEDS: ENOXAPARIN 40 MG/0.4 ML SYG SC SCH (08:03)
[2018-08-25] MEDS: ASPIRIN (EC) 81 MG TAB PO SCH (08:03)
[2018-08-25] MEDS: AMLODIPINE 10 MG TAB PO SCH (08:04)
[2018-08-25] MEDS: LISINOPRIL 20 MG TAB PO SCH (08:04)
[2018-08-25] MEDS: CLOPIDOGREL 75 MG TAB PO SCH (08:04)
[2018-08-25 11:33] VITALS: BP 120/73; PULSE 65; RESP 17
[2018-08-25] MEDS ORDERED: Insulin Glargine SC ×2 (14:40→14:45)
[2018-08-25] MEDS ORDERED: AMLO-147 PO (14:40)
[2018-08-25] MEDS ORDERED: ASPI-1044 PO (14:40)
[2018-08-25] MEDS ORDERED: CLOP75TA28 PO (14:40)
[2018-08-25] MEDS ORDERED: NOVO3I SC ×2 (14:40→14:45)
[2018-08-25] MEDS ORDERED: ATOR40TA68 PO (14:40)
[2018-08-25] MEDS ORDERED: LISI-471 PO (14:40)
--- NOTE | 2018-08-25 14:54 | DS ---
Date/Time of Note Date/Time of Note DATE: 08/25/18 TIME: 14:49 Discharge Summary Admission/Discharge Info Admit Date/Time Aug 21, 2018 at 19:47 Discharge Date/Time Discharge Diagnosis 1. 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 DM, on lantus, ISS, increase lantus 4. HTN, increase norvasc, continue lisinopril 5. Dyslipidemia, on lipitor 6. CAD, s/p CABG in 2017, stable 7. TSH 5.58, FT4 0.88, repeat per PCP 8. DVT prophylaxis: lovenox Patient Condition: Stable Hospital Course This is a 67-year-old male with a past medical history of coronary artery disease, diabetes and hypertension who presented to the emergency department com plaining of weakness. His is present with him at the bedside. She states that approximate 1 week ago patient was reporting left upper and lower extremity numbness and weakness. He was seen in the emergency department and treated for elevated blood sugars on August 19. reports that on that day she noticed that he was having unsteady gait. He has not been taking his blood pressure medications or diabetes medications for approximately 6 months as he apparently did not need to take them any longer. reports that he is still eating. Patient denies any chest pain nausea vomiting or diarrhea. Of note patient is noted to have a hemoglobin A1c of 12.5. MRI brain shows acute/recent non-hemorrhagic infarct of the right ventral pontine tegmentum measuring 11 x 7 mm. 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 Patient is on aspirin and lipitor, he will be on plavix for 3 months. He will continue on PT and OT. Patient has HTN, DM that he is getting ap[propriated treatment including insulin. Insulin dosage will be adjusted. Home Meds Active Scripts Insulin Aspart* (Novolog Insulin Pen*) 100 Unit/Ml Soln, 6 UNIT SC WITH MEALS for 30 Days Prov:MICHELLE GIBBONS MD 08/25/18 [Insulin Glargine] 100 UNITS/ML SOLN No Conflict Check, 24 UNITS SC DAILY@0800 for 30 Days Prov:MICHELLE GIBBONS MD 08/25/18 Aspirin Delayed Release (Aspirin Delayed Release) 81 Mg Tablet.dr, 81 MG PO DAILY for 30 Days Prov:MICHELLE GIBBONS MD 08/25/18 Lisinopril* (Lisinopril*) 20 Mg Tablet, 20 MG PO DAILY for 30 Days, TAB Prov:MICHELLE GIBBONS MD 08/25/18 Atorvastatin* (Atorvastatin*) 40 Mg Tablet, 40 MG PO HS for 30 Days, TAB Prov:MICHELLE GIBBONS MD 08/25/18 Amlodipine Besylate* (Amlodipine Besylate*) 10 Mg Tablet, 10 MG PO DAILY for 30 Days, TAB Prov:MICHELLE GIBBONS MD 08/25/18 Clopidogrel Bisulfate (Clopidogrel) 75 Mg Tablet, 75 MG PO DAILY for 90 Days, TAB Prov:MICHELLE GIBBONS MD 08/25/18 Discontinued Scripts Gentamicin Sulfate* (Gentamicin Sulfate* Ophth) 0.3% - 5 Ml Drops, 1 DROP BOTH EYES Q4 for 5 Days, EA Prov:LILA RIDDLE CLINICAL SERVICES ASSISTANT 09/24/14 Ibuprofen* (Motrin*) 600 Mg Tab, 600 MG PO Q6H PRN for PAIN AND OR ELEVATED TEMP, #30 Prov:LILA RIDDLE NP 09/24/14 Follow-up Plan ARU follow up with PCP and neurology outpatient Primary Care Provider Not On Staff Doctor Pending Labs Laboratory Tests Test 08/24/18 17:16 08/24/18 21:21 08/25/18 02:29 08/25/18 07:53 Bedside 127 269 178 205 Glucose mg/dL (70-220) mg/dL (70-220) mg/dL (70-220) mg/dL (70-220) Test 08/25/18 11:48 Bedside 220 Glucose mg/dL (70-220) MICHELLE GIBBONS MD Aug 25, 2018 14:54
[2018-08-25 16:00] VITALS: BP 148/86; PULSE 68; RESP 17
[2018-08-25] MEDS ORDERED: INSULIN ASPART [NOVOLOG] 3 ML PEN SC SCH (17:55)
[2018-08-26] MEDS ORDERED: INSULIN GLARGINE [LANTus] (100 UNITS/ML) SYG SC SCH (08:00)
== END 2018-08-25 18:43 | DRG 65 ==
LOC: E/R 18:38 → TEL 19:47 → UNDODISIN 08-23 16:10 → TEL 08-25 05:46
PROVIDERS: ADMIT Family Medicine; ATTEND Internal Medicine
DX: I63.9 Cerebral infarction, unspecified (principal); G81.94 Hemiplegia, unspecified affecting left nondominant side; E11.65 Type 2 diabetes mellitus with hyperglycemia; I10 Essential (primary) hypertension; E78.5 Hyperlipidemia, unspecified; I25.10 Atherosclerotic heart disease of native coronary artery without angina pectoris; Z79.4 Long term (current) use of insulin; Z79.82 Long term (current) use of aspirin; Z95.1 Presence of aortocoronary bypass graft; Z79.02 Long term (current) use of antithrombotics/antiplatelets
CPT/HCPCS: 36415; 70450; 70544; 70548; 70551; 71045; 80048; 80053; 80061; 80307; 81001; 82803; 82962; 83036; 83735; 84100; 84439; 84443; 85025; 85651; 86592; 92610; 93005; 93306; 93880; 97110; 97116; 97162; 97165; 97530; 97535; J1650; J1815; J7030

== ENCOUNTER 2018-08-25 17:09 | Inpatient (IN) | payer OTHER ==
[~2018-08-25] VITALS: Ht 157.5 cm; Wt 79.0 kg
[~2018-08-25 17:09] MED LIST changes: +AMLO-147 PO; +ASPI-1044 PO; +ATOR40TA68 PO; +CLOP75TA28 PO; -GENT5DRO28 BOTH EYES; -IBUP-1542 PO; +Insulin Glargine SC; +LISI-471 PO; +NOVO3I SC
[2018-08-25 19:30] VITALS: Ht 157.5 cm; Wt 79.0 kg
[2018-08-25] MEDS ORDERED: MAGNESIUM HYDROXIDE 30ML CUP PO PRN (22:30)
[2018-08-25] MEDS ORDERED: BISACODYL 10 MG SUPP PR PRN (22:30)
[2018-08-25] MEDS: INSULIN ASPART [NOVOLOG] 3 ML PEN SC SCH (23:00)
[2018-08-25] MEDS ORDERED: ACETAMINOPHEN 325 MG TAB PO PRN (23:00)
[2018-08-25] MEDS ORDERED: ATORVASTATIN 40 MG TAB PO SCH (23:00)
[2018-08-25] MEDS ORDERED: DEXTROSE 50% 50 ML SYRINGE IV PRN ×2 (23:30)
[2018-08-25] MEDS ORDERED: GLUCAGON 1 MG INJ IM PRN (23:30)
[2018-08-25] MEDS ORDERED: GLUCOSE GEL 15 GRAM TUBE PO PRN ×2 (23:30)
[2018-08-25] MEDS ORDERED: GLUCOSE GEL 15 GRAM TUBE BUCCAL PRN (23:30)
[2018-08-26] MEDS ORDERED: ACCU-CHEK XX SCH (02:00)
[2018-08-26] MEDS ORDERED: ACCUCHECK AT 2AM (Patients on SS coverage) XX SCH (02:00)
[2018-08-26] MEDS: ACCU-CHEK XX SCH ×2 (07:05→11:30)
[2018-08-26 07:30] VITALS: BP 147/92; PULSE 68; RESP 18
[2018-08-26] MEDS: INSULIN ASPART [NOVOLOG] 3 ML PEN SC SCH ×4 (07:35→11:59)
[2018-08-26] MEDS ORDERED: INSULIN GLARGINE [LANTus] (100 UNITS/ML) SYG SC SCH (08:00)
[2018-08-26] MEDS ORDERED: AMLODIPINE 10 MG TAB PO SCH (09:00)
[2018-08-26] MEDS ORDERED: CLOPIDOGREL 75 MG TAB PO SCH (09:00)
[2018-08-26] MEDS ORDERED: ENOXAPARIN 40 MG/0.4 ML SYG SC SCH (09:00)
[2018-08-26] MEDS ORDERED: DOCUSATE SODIUM 100 MG CAP PO SCH (09:00)
[2018-08-26] MEDS ORDERED: ASPIRIN (EC) 81 MG TAB PO SCH (09:00)
--- NOTE | 2018-08-26 14:01 | CONS ---
DATE OF ADMISSION: 08/25/2018 DATE OF CONSULTATION: 08/26/2018 REHABILITATION POST ADMISSION PHYSICIAN EVALUATION REHABILITATION IMPAIRMENT CATEGORY: Left infarct pontine cerebrovascular accident with right-sided weakness. ACTIVE COMORBIDITIES: 1. Diabetes mellitus type 2. 2. Hypertension. 3. Hyperlipidemia. 4. Coronary artery disease with history of coronary artery bypass graft. 5. Polyneuropathy. 6. Impairments in self-care, mobility, and cognition. HISTORY OF PRESENT ILLNESS: The patient is a 67-year-old right-handed gentleman with a history of multiple medical comorbidities, who was admitted with left- sided numbness and weakness. An MRI of the brain was performed and did demonstrate an acute infarct in the right ventral pontine region. The patient reportedly had been noncompliant with his blood pressure and diabetic medications. The patient was noted to have significant impairments in self-care and mobility as compared to baseline, and was cleared to transfer to the rehabilitation unit for comprehensive interdisciplinary rehab care. After transfer, the patient's family then reported that they would prefer to go home and receive therapy on an outpatient basis. FUNCTIONAL HISTORY: Prior to recent events, the patient was independent in self-care tasks and mobility. On the preadmission screen, the patient was noted to require minimal assist to moderate assist for self-care and mobility tasks. The patient was noted to have contact guard to min assist for self-care and mobility tasks on evaluation. This is a bit higher than what was noted on the preadmission screen. FAMILY AND SOCIAL HISTORY: The patient lives at home with family in a home with multiple stair steps and will be returning home there, and the family reports they will be able to provide 24-hour supervision. PAST MEDICAL HISTORY: 1. Diabetes mellitus type 2. 2. Hypertension. 3. Hyperlipidemia. 4. Coronary artery disease with history of coronary artery bypass graft. 5. History of polyneuropathy. CURRENT MEDICATIONS: 1. Tylenol p.r.n. 2. Norvasc 10 mg p.o. daily. 3. Aspirin 81 mg p.o. daily. 4. Lipitor 40 mg p.o. at bedtime. 5. Plavix 75 mg p.o. daily. 6. Insulin sliding scale. 7. Lovenox 40 mg subcutaneous daily. 8. NovoLog insulin 6 units subcutaneously with meals. 9. Lantus 24 units subcutaneous daily. 10. Zestril 20 mg p.o. daily. ALLERGIES: PATIENT WITH NO KNOWN DRUG ALLERGIES. PHYSICAL EXAMINATION: VITAL SIGNS: The patient is currently afebrile with stable vital signs. HEENT: Extraocular motions are intact. Oropharynx clear. NECK: Supple. LUNGS: Clear anteriorly. CARDIAC: S1, S2. ABDOMEN: Soft, nontender, positive bowel sounds. NEUROLOGIC: The patient is awake and alert and oriented to person. He will follow simple 1-step commands. He demonstrates antigravity strength in bilateral upper extremity and lower extremity. He does have impaired dynamic balance. PLAN: The patient was admitted for comprehensive interdisciplinary acute rehabilitation program. The patient, after staying the night, reported that he wished to go home and receive therapy at home. The plan is to complete caregiver training with regard to self-care and mobility tasks, in addition to cognition and dysphagia, in addition to nursing to review the aforementioned issues, in addition to diabetic control and medication management. The patient is being discharged home, per family request, with outpatient therapy followup, to include physical therapy, occupational therapy and speech therapy. The patient's family reports that he will follow up with his chief psychologist upon discharge. The family educator did review diabetic education with the patient and the need for close monitoring of his blood sugars. Dictated By: AMY ROCHA MD LY/CINTHYA Conf#: [id number] DID#: [id number] CC: MICHAEL ROSA MD;*EndCC* MTDD
--- NOTE | 2018-08-26 14:32 | DS ---
Date/Time of Note Date/Time of Note DATE: 08/26/18 TIME: 14:31 Discharge Summary Admission/Discharge Info Admit Date/Time Aug 25, 2018 at 18:50 Discharge Date/Time Aug 26, 2018 at 13:00 Discharge Diagnosis 1. Left infarct pontine cerebrovascular accident with right-sided weakness. 2. Hypertension. 3. Hyperlipidemia. 4. Coronary artery disease with history of coronary artery bypass graft. 5. Polyneuropathy. 6. Diabetes mellitus type 2. 7. Impairments in self-care, mobility, and cognition. Patient Condition: Good Hospital Course The patient was admitted for comprehensive interdisciplinary acute rehabilitation program. The patient, after staying the night, reported that he wished to go home and receive therapy at home. The family completed caregiver training with regard to self-care and mobility tasks, in addition to cognition and dysphagia, and nursing review of diabetic control and medication management. The patient is being discharged home, per family request, with outpatient therapy followup, to include physical therapy, occupational therapy and speech therapy. The patient's family reports that he will follow up with his statistical engineer upon discharge. The certified diabetes educator did review diabetic education with the patient and the need for close monitoring of his blood sugars. A glucometer was ordered in addition to FWW. Home Meds Active Scripts Insulin Aspart* (Novolog Insulin Pen*) 100 Unit/Ml Soln, 6 UNIT SC WITH MEALS for 30 Days Prov:MICHELLE GIBBONS MD 08/25/18 [Insulin Glargine] 100 UNITS/ML SOLN No Conflict Check, 24 UNITS SC DAILY@0800 for 30 Days Prov:MICHELLE GIBBONS MD 08/25/18 Aspirin Delayed Release (Aspirin Delayed Release) 81 Mg Tablet.dr, 81 MG PO DAILY for 30 Days Prov:MICHELLE GIBBONS MD 08/25/18 Lisinopril* (Lisinopril*) 20 Mg Tablet, 20 MG PO DAILY for 30 Days, TAB Prov:MICHELLE GIBBONS MD 08/25/18 Atorvastatin* (Atorvastatin*) 40 Mg Tablet, 40 MG PO HS for 30 Days, TAB Prov:MICHELLE GIBBONS MD 08/25/18 Amlodipine Besylate* (Amlodipine Besylate*) 10 Mg Tablet, 10 MG PO DAILY for 30 Days, TAB Prov:MICHELLE GIBBONS MD 08/25/18 Clopidogrel Bisulfate (Clopidogrel) 75 Mg Tablet, 75 MG PO DAILY for 90 Days, TAB Prov:MICHELLE GIBBONS MD 08/25/18 Discontinued Scripts Gentamicin Sulfate* (Gentamicin Sulfate* Ophth) 0.3% - 5 Ml Drops, 1 DROP BOTH EYES Q4 for 5 Days, EA Prov:LILA RIDDLE STITCHER OPERATOR 09/24/14 Ibuprofen* (Motrin*) 600 Mg Tab, 600 MG PO Q6H PRN for PAIN AND OR ELEVATED TEMP, #30 Prov:LILA RIDDLE NP 09/24/14 Primary Care Provider Not On Staff Doctor Pending Labs Laboratory Tests Test 08/25/18 22:22 08/25/18 23:25 08/26/18 06:18 08/26/18 07:50 Urine Color STRAW (YELLOW) Urine Clarity CLEAR (CLEAR) Urine pH 7.0 (5.0-9.0) Urine Specific 1.009 (1.003-1. [place] 030) Urine Ketones NEGATIVE mg/dL (NEGATIVE ) Urine Nitrite NEGATIVE mg/dL (NEGATIVE ) Urine NEGATIVE Bilirubin mg/dL (NEGATIVE ) Urine NEGATIVE Urobilinogen mg/dL (NEGATIVE ) Urine Leukocyte NEGATIVE Davian/ul Esterase Urine NEGATIVE Hemoglobin mg/dL (NEGATIVE ) Urine Glucose NEGATIVE mg/dL (NEGATIVE ) Urine Total NEGATIVE Protein mg/dl (NEGATIVE ) Bedside 123 130 Glucose mg/dL (70-220) mg/dL (70-220) White Blood 6.3 Count 10^3/ul (4.8-1 0.8) Red Blood 5.13 Count 10^6/ul (4.70- 6.10) Hemoglobin 15.9 g/dl (14.0-18. 0) Hematocrit 46.7 % (42.0-52.0) Mean 91.0 Corpuscular fl (82.0-101.0 Volume ) Mean 31.0 Corpuscular pg (29.0-33.0) Hemoglobin Mean 34.0 Corpuscular g/dl (32.0-37. Hemoglobin Conc 0) ent Red Cell 12.6 Distribution % (11.5-14.5) Width Platelet Count 180 10^3/UL (140-4 15) Mean Platelet 11.9 Volume fl (7.4-10.4) Immature 0.200 Granulocytes % % (0.001-0.429 ) Neutrophils % 51.3 % (39.0-77.0) Lymphocytes % 29.0 % (15.0-51.0) Monocytes % 12.3 % (0.0-11.0) Eosinophils % 5.9 % (0.0-7.0) Basophils % 1.3 % (0.0-2.0) Nucleated Red 0.0 Blood Cells % /100WBC (0.0-0 .0) Immature 0.010 Granulocytes # 10^3/ul (0.0-0 .031) Neutrophils # 3.2 10^3/ul (1.6-7 .5) Lymphocytes # 1.8 10^3/ul (0.8-2 .9) Monocytes # 0.8 10^3/ul (0.3-0 .9) Eosinophils # 0.4 10^3/ul (0.0-0 .5) Basophils # 0.1 10^3/ul (0.0-0 .1) Nucleated Red 0.0 Blood Cells # 10^3/ul (0.0-0 .0) Sodium Level 140 mmol/L (135-14 4) Potassium 4.0 Level mmol/L (3.5-5. 1) Chloride Level 104 mmol/L (97-110 ) Carbon Dioxide 28 Level mmol/L (21-31) Anion Gap 8 (5-13) Blood Urea 20 Nitrogen mg/dl (7-20) Creatinine 0.84 mg/dl (0.61-1. 24) Est Glomerular > 60 Filtrat mL/min (>60) Rate mL/min Glucose Level 141 mg/dl (70-220) Calcium Level 9.1 mg/dl (8.4-10. 2) Total 0.6 Bilirubin mg/dl (0.2-1.3 ) Direct 0.00 Bilirubin mg/dl (0.00-0. 20) Indirect 0.6 Bilirubin mg/dl (0-1.1) Aspartate Amino 50 Transf (AST/SGO IU/L (15-46) T) Alanine 39 Aminotransferas IU/L (13-69) e (ALT/SGPT) Alkaline 96 Phosphatase IU/L (42-121) Total Protein 6.5 g/dl (6.1-8.1) Albumin 3.2 g/dl (3.3-4.9) Globulin 3.30 g/dl (1.3-3.2) Albumin/Globuli 0.96 n Ratio Test 08/26/18 11:50 Bedside 183 Glucose mg/dL (70-220) AMY ROCHA MD Aug 26, 2018 14:32
[2018-08-26] MEDS ORDERED: SENNA TAB PO SCH (21:00)
== END 2018-08-26 13:00 | disposition home or self-care (01) | DRG 57 ==
LOC: VRC 18:50
PROVIDERS: ADMIT Physical Medicine & Rehabilitation; ATTEND Internal Medicine Pulmonary Disease
DX: I69.351 Hemiplegia and hemiparesis following cerebral infarction affecting right dominant side (principal); E11.9 Type 2 diabetes mellitus without complications; I10 Essential (primary) hypertension; Z95.1 Presence of aortocoronary bypass graft; E78.5 Hyperlipidemia, unspecified; G62.9 Polyneuropathy, unspecified; G31.84 Mild cognitive impairment of uncertain or unknown etiology; Z74.09 Other reduced mobility
CPT/HCPCS: 80053; 81003; 82962; 85025; 87081; 87086; 97163; 97166; J1650; J1815